=== PATIENT | male | born 1980 | race Caucasian/White ===

== ENCOUNTER 2016-08-19 15:00 | Outpatient (RCR) | payer MEDICAID | END 2016-08-25 | LOC: M OUTALCOH 15:00 | PROVIDERS: ATTEND Psychiatry & Neurology Psychiatry | DX: F15.20 Other stimulant dependence, uncomplicated (principal); F10.20 Alcohol dependence, uncomplicated ==

== ENCOUNTER → 2017-07-09 | Outpatient (REF) | payer OTHER, MEDICAID | LOC: M LAB REF 18:08 | PROVIDERS: ATTEND Family Medicine Addiction Medicine | DX: N52.2 Drug-induced erectile dysfunction (principal) ==

== ENCOUNTER → 2017-07-15 | Outpatient (REF) | payer OTHER, MEDICAID ==
[2017-07-15 17:37] LABS: BASO # 0.1 10^3/uL (0.0-0.2); BASO % 1.2 % (0.0-1.0); EOS # 0.3 10^3/uL (0.0-0.50); EOS % 3.6 % (0.0-3.0); IMMATURE GRANULOCYTE # 0.1 10^3/uL (0-0); IMMATURE GRANULOCYTE % 0.8 % (0-0); LYMPH # 3.3 10^3/uL (1.5-4.5); LYMPH % 43.3 % (24.0-44.0); MEAN CORPUSCULAR HEMOGLOBIN 29.5 pg (27.0-33.0); MEAN CORPUSCULAR HGB CONC 33.9 g/dl (32.0-36.5); MONO # 0.6 10^3/uL (0.0-0.8); MONO % 8.2 % (0.0-5.0); NEUTROPHILS # 3.3 10^3/uL (1.8-7.7); NEUTROPHILS % 42.9 % (36.0-66.0); PLATELET COUNT, AUTOMATED 238 10^3/uL (150-450); RED CELL DISTRIBUTION WIDTH 11.7 % (11.5-14.5); WHITE BLOOD COUNT 7.7 10^3/uL (4.0-10.0)
[2017-07-15 18:06] LABS: ALBUMIN 4.1 GM/DL (3.2-5.2); ALBUMIN/GLOBULIN RATIO 1.32 (1.00-1.93); ALKALINE PHOSPHATASE 105 U/L (45-117); ALT/SGPT 49 U/L (12-78); ANION GAP 4 MEQ/L (8-16); AST/SGOT 26 U/L (7-37); BILIRUBIN,TOTAL 0.4 MG/DL (0.2-1.0); BLOOD UREA NITROGEN 9 MG/DL (7-18); CALCIUM LEVEL 8.7 MG/DL (8.5-10.1); CARBON DIOXIDE LEVEL 30 MEQ/L (21-32); CHLORIDE LEVEL 106 MEQ/L (98-107); CHOLESTEROL LEVEL 186 MG/DL (<200); CREATININE FOR GFR 0.77 MG/DL (0.70-1.30); GLOMERULAR FILTRATION RATE > 60.0 (>60); GLUCOSE, FASTING 81 MG/DL (70-105); POTASSIUM SERUM 4.5 MEQ/L (3.5-5.1); SODIUM LEVEL 140 MEQ/L (136-145); TOTAL PROTEIN 7.2 GM/DL (6.4-8.2); TRIGLYCERIDES LEVEL 150 MG/DL (<150)
== END ==
LOC: M LAB REF 08:00
DX: Z00.01 Encounter for general adult medical examination with abnormal findings (principal); F19.11 Other psychoactive substance abuse, in remission
CPT/HCPCS: 84403

== ENCOUNTER → 2017-08-03 | Outpatient (REF) | payer OTHER, MEDICAID | LOC: M LAB REF 18:07 | DX: F19.11 Other psychoactive substance abuse, in remission (principal) ==

== ENCOUNTER → 2017-08-10 | Outpatient (REF) | payer OTHER, MEDICAID ==
[2017-08-14 08:06] LABS: AMPHETAMINE SCREEN, URINE Negative ng/mL (Cutoff=1000); BARBITURATES SCREEN, URINE Negative ng/mL (Cutoff=200); BENZODIAZEPINES, URINE SCREEN Negative ng/mL (Cutoff=200); CANNABINOID SCREEN, URINE See Final Results ng/mL (Cutoff=20); CANNABINOID, URINE Positive (Cutoff=20); CARBOXY THC (GC/MS) 174 ng/mL (Cutoff=10); COCAINE SCREEN, URINE Negative ng/mL (Cutoff=300); CREATININE, URINE 99.2 mg/dL (20.0-300.0); FENTANYL URINE SCREEN Negative pg/mL (Cutoff=2000); METHADONE, URINE SCREEN Negative ng/mL (Cutoff=300); NALOXONE RESULT Positive (.); OPIATE SCREEN, URINE Negative ng/mL (Cutoff=300); OXYCODONE, SCREEN, URINE Negative ng/mL (Cutoff=100); PCP SCREEN, URINE Negative ng/mL (Cutoff=25); SPECIFIC GRAVITY, URINE 1.013 (.); URINE BUPRENORPHINE Positive (.); URINE BUPRENORPHINE Positive (Cutoff=10); URINE BUPRENORPHINE See Final Results ng/mL (Cutoff=10); URINE BUPRENORPHINE CONFIRM 46 ng/mL (Cutoff=10); URINE NORBUPRENORPHINE Positive (.); URINE NORBUPRENORPHINE CONFIRM 156 ng/mL (Cutoff=10)
== END ==
LOC: M LAB REF 12:53
DX: F19.11 Other psychoactive substance abuse, in remission (principal)

== ENCOUNTER → 2017-08-18 | Outpatient (REF) | payer OTHER, MEDICAID | LOC: M LAB REF 17:15 | DX: F19.11 Other psychoactive substance abuse, in remission (principal) ==

== ENCOUNTER → 2017-08-25 | Outpatient (REF) | payer OTHER, MEDICAID | LOC: M LAB REF 19:23 | DX: F19.11 Other psychoactive substance abuse, in remission (principal) ==

== ENCOUNTER → 2017-09-07 | Outpatient (REF) | payer OTHER, MEDICAID ==
[2017-09-13 14:16] LABS: AMPHETAMINE SCREEN, URINE Negative ng/mL (Cutoff=1000); BARBITURATES SCREEN, URINE Negative ng/mL (Cutoff=200); BENZODIAZEPINES, URINE SCREEN Negative ng/mL (Cutoff=200); CANNABINOID SCREEN, URINE See Final Results ng/mL (Cutoff=20); CANNABINOID, URINE Negative (Cutoff=20); COCAINE SCREEN, URINE Negative ng/mL (Cutoff=300); CREATININE, URINE 11.2 mg/dL (20.0-300.0); FENTANYL URINE SCREEN Negative pg/mL (Cutoff=2000); METHADONE, URINE SCREEN Negative ng/mL (Cutoff=300); NALOXONE RESULT Positive (.); OPIATE SCREEN, URINE Negative ng/mL (Cutoff=300); OXYCODONE, SCREEN, URINE Negative ng/mL (Cutoff=100); PCP SCREEN, URINE Negative ng/mL (Cutoff=25); URINE BUPRENORPHINE Negative ng/mL (Cutoff=10); pH, URINE 6.8 (4.5-8.9)
== END ==
LOC: M LAB REF 13:26
DX: F19.11 Other psychoactive substance abuse, in remission (principal)
CPT/HCPCS: 80362

== ENCOUNTER → 2017-09-20 | Outpatient (CLI) | payer MEDICAID | LOC: M OUTALCOH 13:11 | DX: Z13.9 Encounter for screening, unspecified (principal); F11.20 Opioid dependence, uncomplicated; F12.20 Cannabis dependence, uncomplicated ==

== ENCOUNTER → 2017-09-22 | Outpatient (REF) | payer MEDICAID | LOC: M LAB REF 16:46 | DX: F19.11 Other psychoactive substance abuse, in remission (principal) ==

== ENCOUNTER → 2017-09-29 | Outpatient (REF) | payer MEDICAID | LOC: M LAB REF 16:37 | DX: F19.11 Other psychoactive substance abuse, in remission (principal) | CPT/HCPCS: 80362 ==

== ENCOUNTER 2017-09-30 13:05 | Outpatient (RCR) | payer MEDICAID | END 2017-10-23 | LOC: M OUTALCOH 10-04 14:00 | DX: F15.20 Other stimulant dependence, uncomplicated (principal); F11.20 Opioid dependence, uncomplicated; F12.20 Cannabis dependence, uncomplicated; F17.200 Nicotine dependence, unspecified, uncomplicated ==

== ENCOUNTER → 2017-10-01 | Outpatient (CLI) | payer OTHER | LOC: M EKG 13:31 | DX: R07.89 Other chest pain (principal) | CPT/HCPCS: 93005 ==

== ENCOUNTER → 2017-10-06 | Outpatient (REF) | payer OTHER, MEDICAID ==
[2017-10-13 08:40] LABS: AMPHETAMINE SCREEN, URINE Negative ng/mL (Cutoff=1000); BARBITURATES SCREEN, URINE Negative ng/mL (Cutoff=200); BENZODIAZEPINES, URINE SCREEN Negative ng/mL (Cutoff=200); CANNABINOID SCREEN, URINE See Final Results ng/mL (Cutoff=20); CANNABINOID, URINE Positive (Cutoff=20); CARBOXY THC (GC/MS) 120 ng/mL (Cutoff=10); COCAINE SCREEN, URINE Negative ng/mL (Cutoff=300); CREATININE, URINE 129.4 mg/dL (20.0-300.0); FENTANYL URINE SCREEN Negative pg/mL (Cutoff=2000); METHADONE, URINE SCREEN Negative ng/mL (Cutoff=300); NALOXONE RESULT Positive (.); OPIATE SCREEN, URINE Negative ng/mL (Cutoff=300); OXYCODONE, SCREEN, URINE Negative ng/mL (Cutoff=100); PCP SCREEN, URINE Negative ng/mL (Cutoff=25); SPECIFIC GRAVITY, URINE 1.016 (.); URINE BUPRENORPHINE Positive (.); URINE BUPRENORPHINE Positive (Cutoff=10); URINE BUPRENORPHINE See Final Results ng/mL (Cutoff=10); URINE BUPRENORPHINE CONFIRM 22 ng/mL (Cutoff=10); URINE NORBUPRENORPHINE Positive (.); URINE NORBUPRENORPHINE CONFIRM 134 ng/mL (Cutoff=10); pH, URINE 5.5 (4.5-8.9)
== END ==
LOC: M LAB REF 19:59
DX: F19.11 Other psychoactive substance abuse, in remission (principal)
CPT/HCPCS: 80362

== ENCOUNTER 2017-10-07 20:49 | Emergency (ER) | payer OTHER, MEDICAID | END 2017-10-08 00:02 | disposition left against medical advice (07) | LOC: M ED 10-08 00:02 | DX: Z53.21 Procedure and treatment not carried out due to patient leaving prior to being seen by health care provider (principal) ==

== ENCOUNTER → 2017-10-12 | Outpatient (REF) | payer OTHER, MEDICAID | LOC: M LAB REF 09:00 | DX: F19.11 Other psychoactive substance abuse, in remission (principal) ==

== ENCOUNTER → 2017-10-20 | Outpatient (REF) | payer MEDICAID ==
[2017-10-27 00:06] LABS: AMPHETAMINE SCREEN, URINE Negative ng/mL (Cutoff=1000); BARBITURATES SCREEN, URINE Negative ng/mL (Cutoff=200); BENZODIAZEPINES, URINE SCREEN Negative ng/mL (Cutoff=200); CANNABINOID SCREEN, URINE See Final Results ng/mL (Cutoff=20); CANNABINOID, URINE Positive (Cutoff=20); CARBOXY THC (GC/MS) 72 ng/mL (Cutoff=10); COCAINE SCREEN, URINE Negative ng/mL (Cutoff=300); CREATININE, URINE 66.8 mg/dL (20.0-300.0); FENTANYL URINE SCREEN Negative pg/mL (Cutoff=2000); METHADONE, URINE SCREEN Negative ng/mL (Cutoff=300); NALOXONE RESULT Positive (.); OPIATE SCREEN, URINE Negative ng/mL (Cutoff=300); OXYCODONE, SCREEN, URINE Negative ng/mL (Cutoff=100); PCP SCREEN, URINE Negative ng/mL (Cutoff=25); URINE BUPRENORPHINE Positive (.); URINE BUPRENORPHINE Positive (Cutoff=10); URINE BUPRENORPHINE See Final Results ng/mL (Cutoff=10); URINE BUPRENORPHINE CONFIRM 22 ng/mL (Cutoff=10); URINE NORBUPRENORPHINE Positive (.); URINE NORBUPRENORPHINE CONFIRM 90 ng/mL (Cutoff=10); pH, URINE 5.7 (4.5-8.9)
== END ==
LOC: M LAB REF 17:07
DX: F19.11 Other psychoactive substance abuse, in remission (principal)
CPT/HCPCS: 80362

== ENCOUNTER 2017-10-25 14:33 | Outpatient (RCR) | payer MEDICAID | END 2017-11-22 | LOC: M OUTALCOH 14:33 | DX: F15.20 Other stimulant dependence, uncomplicated (principal); F11.20 Opioid dependence, uncomplicated; F12.20 Cannabis dependence, uncomplicated; F17.200 Nicotine dependence, unspecified, uncomplicated ==

== ENCOUNTER → 2017-11-24 | Outpatient (REF) | payer OTHER, MEDICAID | LOC: M LAB REF 17:42 | DX: F19.11 Other psychoactive substance abuse, in remission (principal) ==

== ENCOUNTER 2017-11-29 15:08 | Outpatient (RCR) | payer MEDICAID | END 2017-12-23 | LOC: M OUTALCOH 15:08 | DX: F15.20 Other stimulant dependence, uncomplicated (principal); F11.20 Opioid dependence, uncomplicated; F12.20 Cannabis dependence, uncomplicated; F17.200 Nicotine dependence, unspecified, uncomplicated ==

== ENCOUNTER → 2017-12-08 | Outpatient (REF) | payer MEDICAID | LOC: M LAB REF 17:00 | DX: F19.11 Other psychoactive substance abuse, in remission (principal) ==

== ENCOUNTER → 2017-12-22 | Outpatient (REF) | payer MEDICAID ==
[2018-01-04 08:06] LABS: AMPHETAMINE SCREEN, URINE Negative ng/mL (Cutoff=1000); BARBITURATES SCREEN, URINE Negative ng/mL (Cutoff=200); BENZODIAZEPINES, URINE SCREEN Negative ng/mL (Cutoff=200); CANNABINOID SCREEN, URINE See Final Results ng/mL (Cutoff=20); CANNABINOID, URINE Positive (Cutoff=20); CARBOXY THC (GC/MS) 14 ng/mL (Cutoff=10); COCAINE SCREEN, URINE Negative ng/mL (Cutoff=300); CREATININE, URINE 27.8 mg/dL (20.0-300.0); FENTANYL URINE SCREEN Negative pg/mL (Cutoff=2000); METHADONE, URINE SCREEN Negative ng/mL (Cutoff=300); NALOXONE RESULT Positive (.); OPIATE SCREEN, URINE Negative ng/mL (Cutoff=300); OXYCODONE, SCREEN, URINE Negative ng/mL (Cutoff=100); PCP SCREEN, URINE Negative ng/mL (Cutoff=25); SPECIFIC GRAVITY, URINE 1.004 (.); URINE BUPRENORPHINE Positive (.); URINE BUPRENORPHINE Positive (Cutoff=10); URINE BUPRENORPHINE See Final Results ng/mL (Cutoff=10); URINE BUPRENORPHINE CONFIRM 10 ng/mL (Cutoff=10); URINE NORBUPRENORPHINE Positive (.); URINE NORBUPRENORPHINE CONFIRM 34 ng/mL (Cutoff=10); pH, URINE 5.7 (4.5-8.9)
== END ==
LOC: M LAB REF 09:08
DX: F19.11 Other psychoactive substance abuse, in remission (principal)

== ENCOUNTER → 2018-04-28 | Outpatient (CLI) | payer OTHER | LOC: M RAD 08:44 | DX: K80.50 Calculus of bile duct without cholangitis or cholecystitis without obstruction (principal) | CPT/HCPCS: 76705 ==

== ENCOUNTER → 2018-09-26 | Outpatient (REF) | payer OTHER ==
[~2018-09-26] MED LIST: OMEP20CA3; SUBO8MIS
[2018-09-26 13:36] LABS: ALBUMIN 3.8 GM/DL (3.2-5.2); ALT/SGPT 29 U/L (12-78); BILIRUBIN,TOTAL 0.3 MG/DL (0.2-1.0); BLOOD UREA NITROGEN 10 MG/DL (7-18); CALCIUM LEVEL 7.9 MG/DL (8.5-10.1); CARBON DIOXIDE LEVEL 25 MEQ/L (21-32); CHLORIDE LEVEL 108 MEQ/L (98-107); CHOLESTEROL LEVEL 204 MG/DL (<200); CHOLESTEROL RISK RATIO 7.285 (<5); CREATININE FOR GFR 0.86 MG/DL (0.70-1.30); GLOMERULAR FILTRATION RATE > 60.0 (>60); GLUCOSE, FASTING 109 MG/DL (70-100); HDL CHOLESTEROL 28 MG/DL (>40); NON-HDL-C 176 MG/DL; POTASSIUM SERUM 4.1 MEQ/L (3.5-5.1); SODIUM LEVEL 141 MEQ/L (136-145); TOTAL PROTEIN 6.9 GM/DL (6.4-8.2); TRIGLYCERIDES LEVEL 481 MG/DL (<150)
== END ==
LOC: M LAB REF 12:04
PROVIDERS: ATTEND Family Medicine Addiction Medicine
DX: G56.03 Carpal tunnel syndrome, bilateral upper limbs (principal)

== ENCOUNTER → 2020-05-21 | Outpatient (CLI) | payer OTHER ==
[~2020-05-21] MED LIST changes: +OMEP1CAP73; -OMEP20CA3
[2020-05-21 13:59] LABS: HEMATOCRIT 45.7 % (42.0-52.0); HEMOGLOBIN 14.9 g/dl (13.5-17.5); MEAN CORPUSCULAR HEMOGLOBIN 28.5 pg (27.0-33.0); MEAN CORPUSCULAR HGB CONC 32.6 g/dl (32.0-36.5); MEAN CORPUSCULAR VOLUME 87.5 fl (80.0-96.0); PLATELET COUNT, AUTOMATED 280 10^3/uL (150-450); RED BLOOD COUNT 5.22 10^6/uL (4.30-6.10); WHITE BLOOD COUNT 10.9 10^3/uL (4.0-10.0)
[2020-05-21 15:24] LABS: HEPATITIS B SURFACE ANTIGEN NEGATIVE (NEGATIVE); HEPATITIS C VIRUS ABY INDEX 0.1 INDEX (<0.8); HIV 1&2 SCREEN CENTAUR NEGATIVE (NEGATIVE)
== END ==
LOC: M LAB 13:25
PROVIDERS: ATTEND Family Medicine
DX: F11.10 Opioid abuse, uncomplicated (principal)

== ENCOUNTER → 2020-11-12 | Outpatient (REF) | payer OTHER ==
[2020-11-12 19:38] LABS: ALBUMIN 4.3 GM/DL (3.2-5.2); ALT/SGPT 63 U/L (12-78); BILIRUBIN,TOTAL 0.6 MG/DL (0.2-1.0); BLOOD UREA NITROGEN 10 MG/DL (7-18); CALCIUM LEVEL 9.1 MG/DL (8.5-10.1); CARBON DIOXIDE LEVEL 29 MEQ/L (21-32); CHLORIDE LEVEL 106 MEQ/L (98-107); CREATININE FOR GFR 0.87 MG/DL (0.70-1.30); FREE T4 0.96 NG/DL (0.76-1.46); GLOMERULAR FILTRATION RATE > 60.0 (>60); GLUCOSE, FASTING 93 MG/DL (70-100); POTASSIUM SERUM 4.8 MEQ/L (3.5-5.1); SODIUM LEVEL 139 MEQ/L (136-145); TOTAL PROTEIN 7.2 GM/DL (6.4-8.2)
[2020-11-12 19:46] LABS: HEPATITIS B SURFACE ANTIGEN NEGATIVE (NEGATIVE)
[2020-11-12 20:23] LABS: TOTAL 25(OH) VITAMIN D 23.4 NG/ML (30.0-100.0)
== END ==
LOC: M LAB REF 11:35
PROVIDERS: ATTEND Physician Assistant
DX: Z11.3 Encounter for screening for infections with a predominantly sexual mode of transmission (principal); R51.9 Headache, unspecified; Z11.4 Encounter for screening for human immunodeficiency virus [HIV]; E55.9 Vitamin D deficiency, unspecified

== ENCOUNTER → 2020-12-16 | Outpatient (CLI) | payer OTHER ==
--- NOTE | 2020-12-16 15:00 | REP ---
INDICATION: PAIN IN RIGHT SHOULDER COMPARISON: None. TECHNIQUE: Internal rotation, external rotation, and Y view. FINDINGS: Very subtle spurring along the inferior margin of the distal clavicle at the acromioclavicular joint. Subacromial space is normal. No periarticular calcifications are identified. The glenohumeral joint is normal. No evidence for acute fracture or dislocation. IMPRESSION: Minimal degenerative changes along the inferior margin of the distal clavicle. <Electronically signed by Alex Mcneil > 12/16/20 [id number]
--- NOTE | 2020-12-16 15:02 | REP ---
INDICATION: PAIN IN RIGHT SHOULDER COMPARISON: None. TECHNIQUE: AP, sunrise and lateral views of the right knee FINDINGS: Osseous structures, joint spaces, and surrounding soft tissues are essentially normal and age-appropriate. No evidence for fracture or dislocation. No obvious effusion. No significant overt arthritic changes identified. IMPRESSION: Relatively normal age-appropriate right knee radiographs. <Electronically signed by Alex Mcneil > 12/16/20 [id number]
== END ==
LOC: M RAD 14:27
PROVIDERS: ATTEND Physician Assistant
DX: M25.511 Pain in right shoulder (principal); M25.561 Pain in right knee; M19.011 Primary osteoarthritis, right shoulder

== ENCOUNTER → 2021-04-18 | Outpatient (REF) | payer OTHER ==
[2021-04-18 10:47] LABS: SEMEN APPEARANCE OPAQUE (OPAQUE); SEMEN VISCOSITY VISCOUS (LIQUID); SEMEN VOLUME 1.5 ml (2.0-5.0)
[2021-04-18 10:48] LABS: WBC CONCENTRATION >1 M/ml (<=1 M/ml)
== END ==
LOC: M SMT 10:23
PROVIDERS: ATTEND Nurse Practitioner Women's Health
DX: N46.9 Male infertility, unspecified (principal)

== ENCOUNTER → 2021-05-08 | Outpatient (CLI) | payer OTHER | LOC: M LABSMTC 10:51 | PROVIDERS: ATTEND Pediatrics | DX: Z20.822 Contact with and (suspected) exposure to COVID-19 (principal) ==

== ENCOUNTER → 2021-06-12 | Outpatient (CLI) | payer OTHER ==
--- NOTE | 2021-06-12 15:58 | REP ---
INDICATION: UNSPECIFIED ABDOMINAL PAIN COMPARISON: None TECHNIQUE: Real time hector scale ultrasound examination using curved array transducer. FINDINGS: Bilateral kidneys are normal in contour, size, echogenicity, and reniform shape. No hydronephrosis, nephrolithiasis, cystic or renal mass lesion. No perinephric fluid collection. Bladder is normal. Left ureteral jet identified likely excluding ureteral obstruction. Right kidney measures 12.4 x 5.7 x 5.8 cm. Left kidney measures 13.1 x 5.0 x 5.5 cm. IMPRESSION: 1. Normal renal ultrasound. <Electronically signed by Alex Mcneil > 06/12/21 [id number]
== END ==
LOC: M RAD 14:52
PROVIDERS: ATTEND Physician Assistant
DX: R10.9 Unspecified abdominal pain (principal)

== ENCOUNTER 2021-06-14 12:36 | Emergency (ER) | payer OTHER ==
[~2021-06-14] VITALS: Ht 175.3 cm; Wt 93.4 kg
--- OUTSIDE RECORDS SUMMARY | 2021-06-14 12:43 | CCD ---
Author Author [facility] Address Unknown Phone Unavailable Care Team Providers Care Seismograph Observer Name Role Phone Feola, T Cherry PA Unavailable Unavailable Feola, T Cherry PA Unavailable Unavailable Feola, T Cherry PA Unavailable Unavailable Feola, T Cherry PA Unavailable Unavailable Feola, T Cherry PA Unavailable Unavailable Feola, T Cherry PA Unavailable Unavailable Feola, T Cherry PA Unavailable Unavailable Feola, T Cherry PA Unavailable Unavailable Feola, T Cherry PA Unavailable Unavailable Feola, T Cherry PA Unavailable Unavailable Feola, T Cherry PA Unavailable Unavailable Feola, T Cherry PA Unavailable Unavailable Feola, T Cherry PA Unavailable Unavailable Feola, T Cherry PA Unavailable Unavailable Feola, T Cherry PA Unavailable Unavailable Feola, T Cherry PA Unavailable Unavailable Feola, T Cherry PA Unavailable Unavailable Feola, T Cherry PA Unavailable Unavailable Feola, T Cherry PA Unavailable Unavailable Feola, T Cherry PA Unavailable Unavailable Feola, T Cherry PA Unavailable Unavailable Feola, T Cherry PA Unavailable Unavailable Feola, T Cherry PA Unavailable Unavailable Feola, T Cherry PA Unavailable Unavailable Feola, T Cherry PA Unavailable Unavailable Feola, T Cherry PA Unavailable Unavailable Feola, T Cherry PA Unavailable Unavailable Feola, T Cherry PA Unavailable Unavailable Feola, T Cherry PA Unavailable Unavailable Feola, T Cherry PA Unavailable Unavailable Feola, T Cherry PA Unavailable Unavailable Feola, T Cherry PA Unavailable Unavailable Feola, T Cherry PA Unavailable Unavailable Feola, T Cherry PA Unavailable Unavailable Feola, T Cherry PA Unavailable Unavailable Feola, T Cherry PA Unavailable Unavailable Feola, T Cherry PA Unavailable Unavailable Feola, T Cherry PA Unavailable Unavailable Feola, T Cherry PA Unavailable Unavailable Feola, T Cherry PA Unavailable Unavailable Feola, T Cheryr PA Unavailable Unavailable Fuad Richmond MD Unavailable Unavailable Fuad Richmond MD Unavailable Unavailable Fuad Richmond MD Unavailable Unavailable Fuad Richmond MD Unavailable Unavailable Fuad Richmond MD Unavailable Unavailable Fuad Richmond MD Unavailable Unavailable Fuad Richmond MD Unavailable Unavailable Fuad Richmond MD Unavailable Unavailable Fuad Richmond MD Unavailable Unavailable Fuad Richmond MD Unavailable Unavailable Fuad Richmond MD Unavailable Unavailable Fuad Richmond MD Unavailable Unavailable Fuad Richmond MD Unavailable Unavailable Fuad Richmond MD Unavailable Unavailable Fuad Richmond MD Unavailable Unavailable Fuad Richmond MD Unavailable Unavailable Fuad Richmond MD Unavailable Unavailable Fuad Richmond MD Unavailable Unavailable Fuad Richmond MD Unavailable Unavailable Fuad Richmond MD Unavailable Unavailable Fuad Richmond MD Unavailable Unavailable Fuad Richmond MD Unavailable Unavailable Fuad Richmond MD Unavailable Unavailable Fuad Richmond MD Unavailable Unavailable Fuad Richmond MD Unavailable Unavailable Fuad Richmond MD Unavailable Unavailable Fuad Richmond MD Unavailable Unavailable Fuad Richmond MD Unavailable Unavailable Fuad Richmond MD Unavailable Unavailable Fuad Richmond MD Unavailable Unavailable Fuad Richmond MD Unavailable Unavailable Fuad Richmond MD Unavailable Unavailable Fuad Richmond MD Unavailable Unavailable Fuad Richmond MD Unavailable Unavailable Fuad Richmond MD Unavailable Unavailable Fuad Richmond MD Unavailable Unavailable Fuad Richmond MD Unavailable Unavailable Fuad Richmond MD Unavailable Unavailable Fuad Richmond MD Unavailable Unavailable Fuad Richmond MD Unavailable Unavailable Fuad Richmond MD Unavailable Unavailable Fuad Richmond MD Unavailable Unavailable Fuad Richmond MD Unavailable Unavailable Fuad Richmond MD Unavailable Unavailable Fuad Richmond MD Unavailable Unavailable Fuad Richmond MD Unavailable Unavailable Fuad Richmond MD Unavailable Unavailable Fuad Richmond MD Unavailable Unavailable Fuad Richmond MD Unavailable Unavailable Fuad Richmond MD Unavailable Unavailable Fuad Richmond MD Unavailable Unavailable Fuad Richmond MD Unavailable Unavailable Fuad Richmond MD Unavailable Unavailable Fuad Richmond MD Unavailable Unavailable Fuad Richmond MD Unavailable Unavailable Fuad Richmond MD Unavailable Unavailable Fuad Richmond MD Unavailable Unavailable Fuad Richmond MD Unavailable Unavailable Fuad Richmond MD Unavailable Unavailable Fuad Richmond MD Unavailable Unavailable Fuad Richmond MD Unavailable Unavailable Fuad Richmond MD Unavailable Unavailable Fuad Richmond MD Unavailable Unavailable Fuad Richmond MD Unavailable Unavailable Fuad Richmond MD Unavailable Unavailable Fuad Richmond MD Unavailable Unavailable Fuad Richmond MD Unavailable Unavailable Fuad Richmond MD Unavailable Unavailable Fuad Richmond MD Unavailable Unavailable Fuad Richmond MD Unavailable Unavailable Fuad Richmond MD Unavailable Unavailable Fuad Richmond MD Unavailable Unavailable Fuad Richmond MD Unavailable Unavailable Fuad Richmond MD Unavailable Unavailable Fuad Richmond MD Unavailable Unavailable Fuad Richmond MD Unavailable Unavailable Fuad Richmond MD Unavailable Unavailable Fuda Richmond MD Unavailable Unavailable Fuad Richmond MD Unavailable Unavailable Fuad Richmond MD Unavailable Unavailable Fuad Richmond MD Unavailable Unavailable Fuad Richmond MD Unavailable Unavailable Fuad Richmond MD Unavailable Unavailable Fuad Richmond MD Unavailable Unavailable Fuad Richmond MD Unavailable Unavailable Fuad Richmond MD Unavailable Unavailable Fuad Richmond MD Unavailable Unavailable Fuad Richmond MD Unavailable Unavailable Fuad Richmond MD Unavailable Unavailable Fuad Richmond MD Unavailable Unavailable Fuad Richmond MD Unavailable Unavailable Fuad Ricmhond MD Unavailable Unavailable Fuad Richmond MD Unavailable Unavailable MCCULLOUGH, G EDWARD RPA Unavailable Unavailable MCCULLOUGH, G EDWARD RPA Unavailable Unavailable MCCULLOUGH, G EDWARD RPA Unavailable Unavailable MCCULLOUGH, G EDWARD RPA Unavailable Unavailable MCCULLOUGH, G EDWARD RPA Unavailable Unavailable MCCULLOUGH, G EDWARD RPA Unavailable Unavailable MCCULLOUGH, G EDWARD RPA Unavailable Unavailable MCCULLOUGH, G EDWARD RPA Unavailable Unavailable MCCULLOUGH, G EDWARD RPA Unavailable Unavailable MCCULLOUGH, G EDWARD RPA Unavailable Unavailable MCCULLOUGH, G EDWARD RPA Unavailable Unavailable MCCULLOUGH, G EDWARD RPA Unavailable Unavailable MCCULLOUGH, G EDWARD RPA Unavailable Unavailable MCCULLOUGH, G EDWARD RPA Unavailable Unavailable MCCULLOUGH, G EDWARD RPA Unavailable Unavailable MCCULLOUGH, G EDWARD RPA Unavailable Unavailable MCCULLOUGH, G EDWARD RPA Unavailable Unavailable MCCULLOUGH, G EDWARD RPA Unavailable Unavailable MCCULLOUGH, G EDWARD RPA Unavailable Unavailable MCCULLOUGH, G EDWARD RPA Unavailable Unavailable MCCULLOUGH, G EDWARD RPA Unavailable Unavailable MCCULLOUGH, G EDWARD RPA Unavailable Unavailable MCCULLOUGH, G EDWARD RPA Unavailable Unavailable MCCULLOUGH, G EDWARD RPA Unavailable Unavailable MCCULLOUGH, G EDWARD RPA Unavailable Unavailable MCCULLOUGH, G EDWARD RPA Unavailable Unavailable MCCULLOUGH, G EDWARD RPA Unavailable Unavailable MCCULLOUGH, G EDWARD RPA Unavailable Unavailable MCCULLOUGH, G EDWARD RPA Unavailable Unavailable MCCULLOUGH, G EDWARD RPA Unavailable Unavailable MCCULLOUGH, G EDWARD RPA Unavailable Unavailable MCCULLOUGH, G EDWARD RPA Unavailable Unavailable MCCULLOUGH, G EDWARD RPA Unavailable Unavailable MCCULLOUGH, G EDWARD RPA Unavailable Unavailable MCCULLOUGH, G EDWARD RPA Unavailable Unavailable MCCULLOUGH, G EDWARD RPA Unavailable Unavailable MCCULLOUGH, G EDWARD RPA Unavailable Unavailable Nader Duran MD Unavailable Unavailable Nader Duran MD Unavailable Unavailable Nader Duran MD Unavailable Unavailable Nader Duran MD Unavailable Unavailable Nader Duran MD Unavailable Unavailable Nader Duran MD Unavailable Unavailable Nader Duran MD Unavailable Unavailable Nader Duran MD Unavailable Unavailable Nader Duran MD Unavailable Unavailable Nader Duran MD Unavailable Unavailable Nader Duran MD Unavailable Unavailable Nader Duran MD Unavailable Unavailable Nader Duran MD Unavailable Unavailable Nader Duran MD Unavailable Unavailable Nader Duran MD Unavailable Unavailable Nader Duran MD Unavailable Unavailable Nader Duran MD Unavailable Unavailable Nader Duran MD Unavailable Unavailable Nader Duran MD Unavailable Unavailable Nader Duran MD Unavailable Unavailable Nader Duran MD Unavailable Unavailable Nader Duran MD Unavailable Unavailable Nader Duran MD Unavailable Unavailable Nader Duran MD Unavailable Unavailable Nader Duran MD Unavailable Unavailable Scordo, M Kassy PA Unavailable Unavailable Scordo, M Kassy PA Unavailable Unavailable Scordo, M Kassy PA Unavailable Unavailable Scordo, M Kassy PA Unavailable Unavailable Scordo, M Kassy PA Unavailable Unavailable Scordo, M Kassy PA Unavailable Unavailable Scordo, M Kassy PA Unavailable Unavailable Scordo, M Kassy PA Unavailable Unavailable Scordo, M Kassy PA Unavailable Unavailable Scordo, M Kassy PA Unavailable Unavailable Scordo, M Kassy PA Unavailable Unavailable Scordo, M Kassy PA Unavailable Unavailable Scordo, M Kassy PA Unavailable Unavailable Scordo, M Kassy PA Unavailable Unavailable Scordo, M Kassy PA Unavailable Unavailable Scordo, M Kassy PA Unavailable Unavailable Scordo, M Kassy PA Unavailable Unavailable Scordo, M Kassy PA Unavailable Unavailable Scordo, M Kassy PA Unavailable Unavailable Scordo, M Kassy PA Unavailable Unavailable Scordo, M Kassy PA Unavailable Unavailable Scordo, M Kassy PA Unavailable Unavailable Scordo, M Kassy PA Unavailable Unavailable Scordo, M Kassy PA Unavailable Unavailable Scordo, M Kassy PA Unavailable Unavailable Scordo, M Kassy PA Unavailable Unavailable Scordo, M Kassy PA Unavailable Unavailable Scordo, M Kassy PA Unavailable Unavailable Scordo, M Kassy PA Unavailable Unavailable Scordo, M Kassy PA Unavailable Unavailable Scordo, M Kassy PA Unavailable Unavailable Scordo, M Kassy PA Unavailable Unavailable Scordo, M Kassy PA Unavailable Unavailable Scordo, M Kassy PA Unavailable Unavailable Scordo, M Kassy PA Unavailable Unavailable Scordo, M Kassy PA Unavailable Unavailable Scordo, M Kassy PA Unavailable Unavailable Scordo, M Kassy PA Unavailable Unavailable Scordo, M Kassy PA Unavailable Unavailable Scordo, M Kassy PA Unavailable Unavailable Scordo, M Kassy PA Unavailable Unavailable Scordo, M Kassy PA Unavailable Unavailable Scordo, M Kassy PA Unavailable Unavailable Scordo, M Kassy PA Unavailable Unavailable Scordo, M Kassy PA Unavailable Unavailable Scordo, M Kassy PA Unavailable Unavailable Scordo, M Kassy PA Unavailable Unavailable Re-disclosure Warning The records that you are about to access may contain information from federally-assisted alcohol or drug abuse programs. If such information is present, then the following federally mandated warning applies: This information has been disclosed to you from records protected by federal confidentiality rules (42 CFR part 2). The federal rules prohibit you from making any further disclosure of this information unless further disclosure is expressly permitted by the written consent of the person to whom it pertains or as otherwise permitted by 42 CFR part 2. A general authorization for the release of medical or other information is NOT sufficient for this purpose. The Federal rules restrict any use of the information to criminally investigate or prosecute any alcohol or drug abuse patient.The records that you are about to access may contain highly sensitive health information, the redisclosure of which is protected by Article 27-F of the [facility] Public Health law. If you continue you may have access to information: Regarding HIV / AIDS; Provided by facilities licensed or operated by the [facility] Office of Mental Health; or Provided by the [facility] Office for People With Developmental Disabilities. If such information is present, then the following [facility] mandated warning applies: This information has been disclosed to you from confidential records which are protected by state law. State law prohibits you from making any further disclosure of this information without the specific written consent of the person to whom it pertains, or as otherwise permitted by law. Any unauthorized further disclosure in violation of state law may result in a fine or fpc sentence or both. A general authorization for the release of medical or other information is NOT sufficient authorization for further disc losure. Family History Family Member Name Family Member Gender Family Member Status Date o f Status Description Data Source(s) Unknown Male Problem [facility] ([facility]) Encounters Encounter Providers Location Date Indications Data Source(s ) Outpatient Attender: Luly Duran MD 1 08/13/2020 06:50:19 PM EST - 06/13/2021 08:02:36 PM EST [facility] ([facility]) Unknown [address] [facility] [address] 04/18/2021 12:00:00 AM EDT eCW1 ([facility]) Outpatient [address] [facility] [place] [address] 04/15/2021 12:00:00 AM EDT eCW1 ([facility]) Outpatient Attender: Cherry FLORES 03/04/2021 12:00:29 PM EDT [facility] ([facility]) SHELL GanC: [address], [place] [address], Ph. Attender: Kassy FLORES [facility] Medical 02/28/2021 12:00:00 AM EDT AM[facility] ([facility]) Outpatient Attender: LAYO MCCULLOUGH [facility] 01/25 12:46:53 PM EDT - 01/25/2021 01:14:57 PM EDT [facility] ([facility] ) SHELL Gan[facility]: [address], [place] [address], Ph. Attender: Kassy FLORES [facility] Medical 11/12/2020 12:00:00 AM EDT AMY ([facility]) Kassy Moss PA-C: [address], [place] [address], Ph. Attender: Kassy FLORES [facility] Medical 11/12/2020 12:00:00 AM EDT AMY ([facility]) Outpatient Attender: Thony Richmond MD FP 05/20/2020 11:37:00 AM EDT [facility] Outpatient Attender: Thony Richmond MD FP 05/13/2020 10:14:01 AM EDT [facility] Outpatient Attender: Thony Richmond MD FP 05/06/2020 03:43:01 PM EDT [facility] Outpatient Attender: Thony Richmond MD FP 05/06/2020 02:45:00 PM EDT [facility] Outpatient Attender: Thony Richmond MD FP 05/06/2020 11:51:02 AM EDT [facility] Outpatient Attender: Thony Richmond MD FP 05/03/2020 11:44:03 AM EDT [facility] Outpatient Attender: Thony Richmond MD FP 05/02/2020 11:02:01 AM EDT [facility] Outpatient Attender: Thony Richmond MD FP 04/30/2020 11:04:01 AM EDT [facility] Outpatient Attender: Thony Richmond MD FP 04/30/2020 08:54:00 AM EDT [facility] Outpatient Attender: Thony Richmond MD FP 04/25/2020 02:23:00 PM EDT [facility] Outpatient Attender: Thony Richmond MD FP 04/25/2020 02:14:00 PM EDT [facility] Outpatient Attender: Thony Richmond MD FP 04/25/2020 10:48:01 AM EDT [facility] Outpatient Attender: Thony Richmond MD FP 04/23/2020 01:22:02 PM EDT [facility] Outpatient Attender: Thony Richmond MD FP 04/23/2020 10:18:01 AM EDT [facility] Outpatient Attender: Thnoy Richmond MD FP 04/22/2020 02:13:02 PM EDT [facility] Outpatient Attender: Thony Richmond MD FP 04/19/2020 08:32:03 AM EDT [facility] Outpatient Attender: Thony Richmond MD FP 04/17/2020 03:32:03 PM EDT [facility] Outpatient Attender: Thony Richmond MD FP 04/17/2020 12:33:00 PM EDT [facility] Outpatient Attender: Thony Richmond MD FP 04/15/2020 10:25:00 AM EDT [facility] Immunizations Vaccine Date Status Description Data Source(s) COVID-19 VACCINE Moderna 12/09/2020 12:00:00 AM EDT completed [facility] Vaccine Series Complete: YESThis Data wa s Submitted to [facility] Via [facility]. COVID-19 VACC,MRNA(MODERNA)/PF 11/08/2020 12:00:00 AM EDT completed [facility] COVID-19 VACCINE Moderna 11/08/2020 12:00:00 AM EDT completed [facility] Vaccine Series Complete: NOThis Data was Submitted to [facility] Via [facility]. INFLUENZA VIRUS VACCINE QUADRIVALENT 2019- (6 MOS AN D UP) 05/31/2020 12:00:00 AM EST completed [facility] Medications Medication Brand Name Start Date Product Form Dose Route Admi nistrative Instructions Pharmacy Instructions Status Indications Reaction Description Data Source(s) 60 mcg (15 mcg x 4)/0.5 mL 04/18/2021 12:00:00 AM EDT [facility] 0 INJECT DIRECTED INJECT DIRECTED SOLD: 04/18/2021 [facility] 40 mg 01/11/2021 12:00:00 AM EDT capsule,delayed release (DR/EC) 30 TAKE ONE CAPSULE BY MOUTH EVERY DAY TAKE ONE CAPSULE BY MOUTH EVERY DAY SOLD: 05/15/2021 [facility] 40 mg 01/11/2021 12:00:00 AM EDT capsule,delayed release (DR/EC) 30 TAKE ONE CAPSULE BY MOUTH EVERY DAY TAKE ONE CAPSULE BY MOUTH EVERY DAY SOLD: 04/16/2021 [facility] 40 mg 01/11/2021 12:00:00 AM EDT capsule,delayed release (DR/EC) 30 TAKE ONE CAPSULE BY MOUTH EVERY DAY TAKE ONE CAPSULE BY MOUTH EVERY DAY SOLD: 02/12/2021 [facility] 40 mg 01/11/2021 12:00:00 AM EDT capsule,delayed release (DR/EC) 30 TAKE ONE CAPSULE BY MOUTH EVERY DAY TAKE ONE CAPSULE BY MOUTH EVERY DAY SOLD: 03/16/2021 [facility] 40 mg 01/11/2021 12:00:00 AM EDT capsule,delayed release (DR/EC) 30 TAKE ONE CAPSULE BY MOUTH EVERY DAY TAKE ONE CAPSULE BY MOUTH EVERY DAY SOLD: 01/14/2021 [facility] 40 mg 11/12/2020 12:00:00 AM EDT capsule,delayed release (DR/EC) 30 TAKE ONE CAPSULE BY MOUTH EVERY DAY TAKE ONE CAPSULE BY MOUTH EVERY DAY SOLD: 11/13/2020 [facility] 40 mg 11/12/2020 12:00:00 AM EDT capsule,delayed release (DR/EC) 30 TAKE ONE CAPSULE BY MOUTH EVERY DAY TAKE ONE CAPSULE BY MOUTH EVERY DAY SOLD: 12/12/2020 [facility] 40 mg 08/10/2020 12:00:00 AM EST capsule,delayed release (DR/EC) 30 TAKE ONE CAPSULE BY MOUTH EVERY DAY TAKE ONE CAPSULE BY MOUTH EVERY DAY SOLD: 08/15/2020 [facility] 12-3 mg 05/14/2020 12:00:00 AM EDT film [address] PL[address] ONE FILM UNDER THE TONGUE EVERY DAY MAXIMUM DAILY DOSE = [address] ONE FILM UNDER THE TONGUE EVERY DA Y MAXIMUM DAILY DOSE = 1 FILM SOLD: 05/16/2020 [facility] 12-3 mg 05/06/2020 12:00:00 AM EDT film 7 PLACE ONE FILM UNDER THE TONGUE EVERY MORNING MAXIMUM DAILY DOSE = [address] ONE FILM UNDER THE TONGUE EVERY MORNING MAXIMUM DAILY DOSE = 1 FILM SOLD: 05/07/2020 [facility] 40 mg 04/24/2020 12:00:00 AM EDT capsule,delayed release (DR/EC) 30 TAKE ONE CAPSULE BY MOUTH EVERY DAY TAKE ONE CAPSULE BY MOUTH EVERY DAY SOLD: 07/08/2020 [facility] 40 mg 04/24/2020 12:00:00 AM EDT capsule,delayed release (DR/EC) 30 TAKE ONE CAPSULE BY MOUTH EVERY DAY TAKE ONE CAPSULE BY MOUTH EVERY DAY SOLD: 05/31/2020 [facility] 40 mg 04/24/2020 12:00:00 AM EDT capsule,delayed release (DR/EC) 30 TAKE ONE CAPSULE BY MOUTH EVERY DAY TAKE ONE CAPSULE BY MOUTH EVERY DAY SOLD: 04/27/2020 [facility] 12-3 mg 04/23/2020 12:00:00 AM EDT film 7 PLACE ONE FILM UNDER THE TONGUE EVERY MORNING MAXIMUM DAILY DOSE = [address] ONE FILM UNDER THE TONGUE EVERY MORNING MAXIMUM DAILY DOSE = 1 FILM SOLD: 04/23/2020 [facility] 12-3 mg 04/17/2020 12:00:00 AM EDT film 7 PLACE ONE FILM UNDER THE TONGUE EVERY MORNING MAXIMUM DAILY DOSE = [address] ONE FILM UNDER THE TONGUE EVERY MORNING MAXIMUM DAILY DOSE = 1 FILM SOLD: 04/17/2020 [facility] Sertraline 100 MG Oral Tablet sertraline 100 mg tablet sertr diana 100 mg tablet completed sertraline 100 MG Oral Tablet AMY ([facility]) Fluzone Quad 60 mcg (15 mcg x 4)/0.5 mL intramuscular susp. [id number] completed Fluzone Quad 2 -2020 60 mcg (15 mcg x 4)/0.5 mL intramuscular susp. AMY ([facility]) Fluzone Quad 60 mcg (15 mcg x 4)/0.5 mL intramuscular susp. [id number] completed Fluzone Quad 2 -2020 60 mcg (15 mcg x 4)/0.5 mL intramuscular susp. AMY ([facility]) Insurance Providers Payer name Policy type / Coverage type Policy ID Covered republican ID Covered republican's relationship to gupta Policy Gupta Plan Information [facility] [employer] [employer] PLUS [id number] SP [id number] Medicaid S [id number] S [id number] [facility] P [id number] S [id number] Managed Formerly [facility] P [id number] S [id number] [facility] [id number] SP [id number] Medicaid S [id number] [facility] P [id number] S [id number] Medicaid S [id number] S [id number] [employer] P [id number] S [id number] [employer] P [id number] S [id number] [employer] P [id number] S [id number] [facility] S [id number] S [id number] [facility] P [id number] S [id number] Medicaid S [id number] S [id number] [facility] [employer] [id number] Self [id number] [facility] [employer]. [id number] Self [id number] [employer] emp [id number] Employee [id number] [facility] [id number] SP [id number] Self Pay P [id number] S [id number] Self Pay P UNAVAILABLE S UNAVAILA BLE [facility] O [id number] S [id number] Medicaid S [id number] S [id number] [facility] [id number] SP [id number] MEDICAID [id number] SP [id number] [facility] [id number] Self 1 [id number] [facility] P [id number] S [id number] MEDICAID M [id number] S [id number] SELF PAY ONLY [id number] SP [id number] UNAVAILABLE UNAVAILA BLE SELF PAY UNAVAILABLE UNAVAILA BLE [employer] [id number] SP [id number] [facility] [employer] [id number] Problems, Conditions, and Diagnoses Code Display Name Description Problem Type Effective Dates Data Source(s) N46.9 Male infertility Male infertility, unspecified Problem 04/15/2021 12:00:00 AM EDT eCW1 ([facility]) N46.9 Male infertility Infertility male Problem 03/05/2021 12 :00:00 AM EDT eCW1 ([facility]) [id number] Secondary erectile dysfunction Secondary Erectile Dysf unction Problem 04/25/2020 12:00:00 AM EDT [facility] ([facility]) [id number] 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 Negative Dysphotopsia Problem 04/25/2020 12:00:00 AM EDT [facility] ([facility]) [id number] Obstructive sleep apnea syndrome Obstructive Sle ep Apnea Syndrome Problem 04/25/2020 12:00:00 AM EDT [place] ([facility]) [id number] Secondary erectile dysfunction Secondary Erectile Dysf unction Problem 04/25/2020 12:00:00 AM EDT AM[facility] ([facility]) [id number] 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 Negative Dysphotopsia Problem 04/25/2020 12:00:00 AM EDT [facility] ([facility]) [id number] Obstructive sleep apnea syndrome Obstructive Sle ep Apnea Syndrome Problem 04/25/2020 12:00:00 AM EDT [place] ([facility]) [id number] Disorder of upper respiratory system Dis order of Upper Respiratory System Problem 06/08/2019 12:00:00 AM EST - 11/12/2020 12:00:00 AM EDT [place] ([facility]) [id number] Disorder of upper respiratory system Dis order of Upper Respiratory System Problem 06/08/2019 12:00:00 AM EST - 11/12/2020 12:00:00 AM EDT [place] ([facility]) [id number] Finding of general energy Finding of General Energy Pr oblem 09/07/2018 12:00:00 AM EST - 11/12/2020 12:00:00 AM EDT AMY ([facility]) [id number] Finding of general energy Finding of General Energy Pr oblem 09/07/2018 12:00:00 AM EST - 11/12/2020 12:00:00 AM EDT [facility] [facility]) [id number] Chest pain Chest Pain Problem 09/22/2017 12:0 0:00 AM EST - 11/12/2020 12:00:00 AM EDT AM[facility] ([facility]) [id number] Chest pain Chest Pain Problem 09/22/2017 12:0 0:00 AM EST - 11/12/2020 12:00:00 AM EDT AM[facility] ([facility]) [id number] Procedure by method Procedure by Method Problem 1 09/02/2016 12:00:00 AM EST - 11/12/2020 12:00:00 AM EDT AMY ([facility]) [id number] Procedure by method Procedure by Method Problem 1 09/02/2016 12:00:00 AM EST - 11/12/2020 12:00:00 AM EDT AM[facility] ([facility]) Surgeries/Procedures No Information Results ID Date Data Source [id number] 11/12/2020 09:55:00 AM EDT [place] ([facility]) Name Value Range Interpretation Code Description Data [place] rce(s) Supporting Document(s) HIV 1&2 screen centaur negative negative HIV 1&2 Scree n Centaur [place] ([facility]) ID Date Data Source [id number] 11/12/2020 09:55:00 AM EDT [place] ([facility]) Name Value Range Interpretation Code Description Data [place] rce(s) Supporting Document(s) syphilis nonreactive nonreactive Syphilis [facility] ([facility]) ID Date Data Source [id number] 11/12/2020 09:55:00 AM EDT [facility]) Name Value Range Interpretation Code Description Data [place] rce(s) Supporting Document(s) total 25(oh) vitamin D 23.4 NG/mL 30.0-100.0 Below low normal T otal 25(Oh) Vitamin D [place] ([facility]) ID Date Data Source [id number] 11/12/2020 09:55:00 AM EDT [facility]) Name Value Range Interpretation Code Description Data [place] rce(s) Supporting Document(s) thyroid stimulating hormone 1.600 uIU/mL 0.358-3.740 Thyroid Stimulating Hormone [place] ([facility]) free T4 0.96 NG/dL 0.76-1.46 Free T4 [facility]) ID Date Data Source [id number] 11/12/2020 09:55:00 AM EDT [facility]) Name Value Range Interpretation Code Description Data [place] rce(s) Supporting Document(s) hepatitis B surface antigen negative negative Hepatiti s B Surface Antigen [facility]) ID Date Data Source [id number] 11/12/2020 09:55:00 AM EDT [facility]) Name Value Range Interpretation Code Description Data [place] rce(s) Supporting Document(s) hepatitis C virus jocelynn index 0.0 index <0.8 Hepatiti s C Virus Jocelynn Index [facility]) ID Date Data Source [id number] 11/12/2020 09:55:00 AM EDT [facility]) Name Value Range Interpretation Code Description Data [place] rce(s) Supporting Document(s) glucose, fasting 93 mg/dL 70-100 Glucose, Fasting AT [facility] ([facility]) creatinine for GFR 0.87 mg/dL 0.70-1.30 Creatinine for GF R [place] ([facility]) blood urea nitrogen 10 mg/dL 7-18 Blood Urea Nitro gen [facility] ([facility]) glomerular filtration rate > 60.0 >60 Glomerula r Filtration Rate [place] ([facility]) chloride level 106 mEq/L 98-107 Chloride Level [facility] ([facility]) sodium level 139 mEq/L 136-145 Sodium Level [facility] ([facility]) potassium serum 4.8 mEq/L 3.5-5.1 Potassium Serum [place] ([facility]) AST/SGOT 31 U/L 7-37 AST/SGOT [facility] ([facility]) carbon dioxide level 29 mEq/L 21-32 Carbon Dioxide Level [facility] ([facility]) calcium level 9.1 mg/dL 8.5-10.1 Calcium Level [place] ( [facility]) anion gap 4 mEq/L 8-16 Below low normal Anion Gap [facility] ( [facility]) ALT/SGPT 63 U/L 12-78 ALT/SGPT [facility] ([facility]) bilirubin,total 0.6 mg/dL 0.2-1.0 Bilirubin,total [place] ([facility]) alkaline phosphatase 94 U/L 45-117 Alkaline Phosph atase [facility] ([facility]) total protein 7.2 gm/dL 6.4-8.2 Total Protein [facility] ( [facility]) albumin/globulin ratio Albumin/globu kamron Ratio [facility] ([facility]) albumin 4.3 gm/dL 3.2-5.2 Albumin [facility] ([facility]) ID Date Data Source [id number] 11/12/2020 09:55:00 AM EDT [place] ([facility]) Name Value Range Interpretation Code Description Data [place] rce(s) Supporting Document(s) chlamydia DNA probe negative negative Chlamydia DNA Pr obe [facility] ([facility]) GC DNA probe negative negative GC DNA Probe [facility] ([facility]) ID Date Data Source [id number] 11/12/2020 09:55:00 AM EDT [place] ([facility]) Name Value Range Interpretation Code Description Data [place] rce(s) Supporting Document(s) trichomonas vaginalis (amp) not detected negative Tricho monas Vaginalis (Amp) [place] ([facility]) ID Date Data Source [id number] 07/23/2020 12:00:00 AM EST [facility] Name Value Range Interpretation Code Description Data [place] rce(s) Supporting Document(s) SARS coronavirus 2 RNA [Presence] in Res piratory specimen by NELL with probe detection [facility] This lab was ordered by Yamileth Alonzo and reported by [employer]. ID Date Data Source [id number] 07/23/2020 12:00:00 AM EST [facility] Name Value Range Interpretation Code Description Data Ameriac rce(s) Supporting Document(s) Carestart Rapid COVID Antigen Test [facility] This lab was reported by Yamileth monk. ID Date Data Source [id number] 05/21/2020 01:43:00 PM EDT [place] ([facility]) Name Value Range Interpretation Code Description Data [place] rce(s) Supporting Document(s) chlamydia DNA probe negative negative Chlamydia DNA Pr obe [place] ([facility]) GC DNA probe negative negative GC DNA Probe [facility] ([facility]) ID Date Data Source [id number] 05/21/2020 01:43:00 PM EDT [place] ([facility]) Name Value Range Interpretation Code Description Data [place] rce(s) Supporting Document(s) HIV 1&2 screen centaur negative negative HIV 1&2 Scree n Centaur [place] ([facility]) ID Date Data Source [id number] 05/21/2020 01:43:00 PM EDT [place] ([facility]) Name Value Range Interpretation Code Description Data [place] rce(s) Supporting Document(s) syphilis nonreactive nonreactive Syphilis [facility] ([facility]) ID Date Data Source [id number] 05/21/2020 01:43:00 PM EDT [place] ([facility]) Name Value Range Interpretation Code Description Data [place] rce(s) Supporting Document(s) hepatitis B surface antigen negative negative Hepatiti s B Surface Antigen [place] ([facility]) ID Date Data Source [id number] 05/21/2020 01:43:00 PM EDT [place] ([facility]) Name Value Range Interpretation Code Description Data [place] rce(s) Supporting Document(s) hepatitis C virus jocelynn index 0.1 index <0.8 Hepatiti s C Virus Jocelynn Index [place] ([facility]) ID Date Data Source [id number] 05/21/2020 01:43:00 PM EDT [place] ([facility]) Name Value Range Interpretation Code Description Data [place] rce(s) Supporting Document(s) white blood count 10.9 10 4.0-10.0 Above high normal White Blood Count [place] ([facility]) red blood count 5.22 10 4.30-6.10 Red Blood Count [place] ([facility]) mean corpuscular hemoglobin 28.5 pg 27.0-33.0 Mean Cor puscular Hemoglobin [place] ([facility]) hematocrit 45.7 % 42.0-52.0 Hematocrit [facility] ([facility]) mean corpuscular volume 87.5 fL 80.0-96.0 Mean Corpusc ular Volume [place] ([facility]) hemoglobin 14.9 g/dL 13.5-17.5 Hemoglobin [place] ([facility]) platelet count, automated 280 10 150-450 Platelet C ount, Automated [place] ([facility]) red cell distribution width 11.9 % 11.5-14.5 Red Cell Distribution Width [place] ([facility]) mean corpuscular HGB conc 32.6 g/dL 32.0-36.5 Mean Corpu scular HGB Conc [place] ([facility]) nucleated red blood cell % 0.0 % 0-0 Nucleated Red Blood Cell % [place] ([facility]) ID Date Data Source [id number] 05/21/2020 01:43:00 PM EDT [place] ([facility]) Name Value Range Interpretation Code Description Data [place] rce(s) Supporting Document(s) GC DNA probe negative negative GC DNA Probe [facility] ([facility]) chlamydia DNA probe negative negative Chlamydia DNA Pr obe [place] ([facility]) ID Date Data Source [id number] 05/21/2020 01:43:00 PM EDT [place] ([facility]) Name Value Range Interpretation Code Description Data [place] rce(s) Supporting Document(s) HIV 1&2 screen centaur negative negative HIV 1&2 Scree n Centaur [place] ([facility]) ID Date Data Source [id number] 05/21/2020 01:43:00 PM EDT [facility]) Name Value Range Interpretation Code Description Data [place] rce(s) Supporting Document(s) syphilis nonreactive nonreactive Syphilis [place] ([facility]) ID Date Data Source [id number] 05/21/2020 01:43:00 PM EDT [facility]) Name Value Range Interpretation Code Description Data [place] rce(s) Supporting Document(s) hepatitis B surface antigen negative negative Hepatiti s B Surface Antigen [facility]) ID Date Data Source [id number] 05/21/2020 01:43:00 PM EDT [facility]) Name Value Range Interpretation Code Description Data [place] rce(s) Supporting Document(s) hepatitis C virus jocelynn index 0.1 index <0.8 Hepatiti s C Virus Jocelynn Index [facility]) ID Date Data Source [id number] 05/21/2020 01:43:00 PM EDT [facility]) Name Value Range Interpretation Code Description Data [place] rce(s) Supporting Document(s) white blood count 10.9 10 4.0-10.0 Above high normal White Blood Count [place] ([facility]) hemoglobin 14.9 g/dL 13.5-17.5 Hemoglobin [place] ([facility]) hematocrit 45.7 % 42.0-52.0 Hematocrit [place] ([facility]) red blood count 5.22 10 4.30-6.10 Red Blood Count [place] ([facility]) mean corpuscular volume 87.5 fL 80.0-96.0 Mean Corpusc ular Volume [place] ([facility]) mean corpuscular HGB conc 32.6 g/dL 32.0-36.5 Mean Corpu scular HGB Conc [facility] ([facility]) platelet count, automated 280 10 150-450 Platelet C ount, Automated [place] ([facility]) red cell distribution width 11.9 % 11.5-14.5 Red Cell Distribution Width [place] ([facility]) mean corpuscular hemoglobin 28.5 pg 27.0-33.0 Mean Cor puscular Hemoglobin [place] ([facility]) nucleated red blood cell % 0.0 % 0-0 Nucleated Red Blood Cell % [facility] ([facility]) Procedure Social History Code Duration Value Status Description Data Source(s ) Smoking 04/15/2021 12:00:00 AM EDT Former Smoker completed Former Smoker [facility] ([facility]) Smoking 04/15/2021 12:00:00 AM EDT Former Smoker completed Former Smoker [facility] ([facility]) Vital Signs ID Date Data Source [id number] Name Value Range Interpretation Code Description Data Source(s) Body weight 209 [lb_av] 209 [lb_av] [facility] ([facility]) Body weight 94.8 kg 94.8 kg [facility] ([facility]) Body height 68 [in_i] 68 [in_i] [facility] ([facility]) Body mass index (BMI) [Ratio] 31.77 kg/m2 31.77 kg/m2 [facility] ([facility]) Heart rate 86 /min 86 /min eCW1 ([facility]) Respiratory rate 18 /min 18 /min eCW1 ([facility] Body temperature 97.4 [degF] 97.4 [degF] eCW1 ( [facility]) Systolic blood pressure 124 mm[Hg] 124 mm[Hg] e CW1 ([facility]) Diastolic blood pressure 84 mm[Hg] 84 mm[Hg] eCW1 ([facility]) Diastolic blood pressure 90 mm[Hg] 90 mm[Hg] [place] ([facility]) Body height 68 [in_i] 68 [in_i] [place] ([facility]) Body mass index (BMI) [Ratio] 31.1 kg/m2 31.1 k g/m2 [facility] ([facility]) Systolic blood pressure 130 mm[Hg] 130 mm[Hg] A [facility] ([facility]) Body weight 3268 [oz_av] 3268 [oz_av] [facility] ([facility]) Diastolic blood pressure 80 mm[Hg] 80 mm[Hg] [place] ([facility]) Body height 68 [in_i] 68 [in_i] [place] ([facility]) Body mass index (BMI) [Ratio] 32.8 kg/m2 32.8 k g/m2 [facility] ([facility]) Systolic blood pressure 118 mm[Hg] 118 mm[Hg] [facility] ([facility]) Body weight 3456 [oz_av] 3456 [oz_av] [facility] ([facility]) Diastolic blood pressure 80 mm[Hg] 80 mm[Hg] [place] ([facility]) Body height 68 [in_i] 68 [in_i] [place] ([facility]) Body mass index (BMI) [Ratio] 32.8 kg/m2 32.8 k g/m2 [facility] ([facility]) Systolic blood pressure 118 mm[Hg] 118 mm[Hg] [facility] ([facility]) Body weight 3456 [oz_av] 3456 [oz_av] [place] ([facility]) Systolic blood pressure 137 mm[Hg] 137 mm[Hg] [facility] ([facility]) Body weight 3520 [oz_av] 3520 [oz_av] [place] ([facility]) Diastolic blood pressure 92 mm[Hg] 92 mm[Hg] [place] ([facility]) Body height 68 [in_i] 68 [in_i] [place] ([facility]) Body mass index (BMI) [Ratio] 33.57 kg/m2 33.57 kg/m2 [place] ([facility]) Diastolic blood pressure 92 mm[Hg] 92 mm[Hg] [place] ([facility]) Body height 68 [in_i] 68 [in_i] [place] ([facility]) Body mass index (BMI) [Ratio] 33.57 kg/m2 33.57 kg/m2 [place] ([facility]) Systolic blood pressure 137 mm[Hg] 137 mm[Hg] [facility] ([facility]) Body weight 3520 [oz_av] 3520 [oz_av] [place] ([facility]) Diastolic blood pressure 88 mm[Hg] 88 mm[Hg] [place] ([facility]) Body mass index (BMI) [Ratio] 34.09 kg/m2 34.09 kg/m2 [place] ([facility]) Systolic blood pressure 130 mm[Hg] 130 mm[Hg] A [facility] ([facility]) Body height 68 [in_i] 68 [in_i] [place] ([facility]) Body weight 3574.08 [oz_av] 3574.08 [oz_av] [facility] [place] ([facility]) Body height 68 [in_i] 68 [in_i] [place] ([facility]) Body mass index (BMI) [Ratio] 34.09 kg/m2 34.09 kg/m2 [place] ([facility]) Systolic blood pressure 130 mm[Hg] 130 mm[Hg] A [facility] ([facility]) Body weight 3574.08 [oz_av] 3574.08 [oz_av] [facility] [place] ([facility]) Diastolic blood pressure 88 mm[Hg] 88 mm[Hg] [place] ([facility]) Diastolic blood pressure 94 mm[Hg] 94 mm[Hg] [place] ([facility]) Body height 68 [in_i] 68 [in_i] [place] ([facility]) Body mass index (BMI) [Ratio] 34.35 kg/m2 34.35 kg/m2 [place] ([facility]) Systolic blood pressure 143 mm[Hg] 143 mm[Hg] A [facility] ([facility]) Body weight 3602.08 [oz_av] 3602.08 [oz_av] [facility] [place] ([facility]) Diastolic blood pressure 94 mm[Hg] 94 mm[Hg] [place] ([facility]) Body height 68 [in_i] 68 [in_i] [place] ([facility]) Body mass index (BMI) [Ratio] 34.35 kg/m2 34.35 kg/m2 [place] ([facility]) Systolic blood pressure 143 mm[Hg] 143 mm[Hg] A [facility] ([facility]) Body weight 3602.08 [oz_av] 3602.08 [oz_av] [facility] [place] ([facility]) Diastolic blood pressure 87 mm[Hg] 87 mm[Hg] [place] ([facility]) Body height 68 [in_i] 68 [in_i] [place] ([facility]) Body mass index (BMI) [Ratio] 34.51 kg/m2 34.51 kg/m2 [facility] ([facility]) Systolic blood pressure 135 mm[Hg] 135 mm[Hg] A [place] ([facility]) Body weight 3618.08 [oz_av] 3618.08 [oz_av] [facility] [place] ([facility]) Diastolic blood pressure 87 mm[Hg] 87 mm[Hg] [place] ([facility]) Body height 68 [in_i] 68 [in_i] [place] ([facility]) Body mass index (BMI) [Ratio] 34.51 kg/m2 34.51 kg/m2 [place] ([facility]) Systolic blood pressure 135 mm[Hg] 135 mm[Hg] [facility] ([facility]) Body weight 3618.08 [oz_av] 3618.08 [oz_av] [facility] [place] ([facility]) Patient Treatment Plan of Care Planned Activity Planned Date Details Description Data Source (s) Sertraline 100 MG Oral Tablet [place] ([facility]) Fluzone Quad 60 mcg (15 mcg x 4)/0.5 mL intramuscular noé p. [place] ([facility]) Fluzone Quad 60 mcg (15 mcg x 4)/0.5 mL intramuscular noé p. [facility] ([facility])
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
--- OUTSIDE RECORDS SUMMARY | 2021-06-14 12:43 | CCD ---
Author Author [facility] Organization [facility] Address Unknown Phone Unavailable Care Team Providers Care Quality Assurance Supervisor Trim Name Role Phone Liz Ferrera Unavailable PROBLEMS Type Condition ICD9-CM Code HAR08-[id number] Code Onset Dates Condition S tatus W/U Status Risk SNOMED Code Notes Problem Infertility male N46.9 Active confirmed 290 400 Problem Male infertility, unspecified N46.9 Active confirm ed [id number] ALLERGIES Allergen (clinical drug ingredient) Drug/Non Drug Allergy do cumented on EMR Reaction Allergy Type Onset Date Status Bee Sting Anaphylaxis Drug Allergy Active ENCOUNTERS from 1979 to 2021-04-16 Encounter Location Date Provider Diagnosis [facility] [address] [phone] [place] [address] Mar, Liz Ferrera Male infertility, unspecified N46.9 IMMUNIZATIONS No Information SOCIAL HISTORY Tobacco Use: Social History Observation Description Date Details (start date - stop date) Former Smoker Sex Assigned At : Social History Observation Description Sex Assigned At Unknown Language: Question Answer Notes Languages spoken: Israeli Alcohol Screening: Question Answer Notes Did you have a drink containing alcohol in the past year? No Points 0 Interpretation Negative Tobacco Use: Question Answer Notes Are you a: former smoker quit 4 month ago REASON FOR REFERRAL No Information VITAL SIGNS Weight 209 lbs Mar, Weight-kg 94.8 kg Mar, Height 68 in Mar, BMI 31.77 kg/m2 Mar, Heart Rate 86 /min Mar, Respiratory Rate 18 /min Mar, Temperature 97.4 degrees Fahrenheit Mar, Oximetry 96% Mar, Blood pressure systolic 124 mm Hg Mar, Blood pressure diastolic 84 mm Hg Mar, MEDICATIONS Medication SIG (Take, Route, Frequency, Duration) [...] Information RESULTS No Results REASON FOR VISIT semen fertility evlauation MEDICAL (GENERAL) HISTORY Type Description Date Medical [...] No Information FUNCTIONAL STATUS No Information ASSESSMENTS Encounter Date Diagnosis Assessment Notes Treatment Notes Treatm ent Clinical Notes Mar, Male infertility, unspecified (ICD-10 - N46.9) PLAN OF TREATMENT Future Test Test Name Order Date SEMEN ANALYSIS (SA) [id number] Insurance Providers Payer Name Payer Address Payer Phone Insured Name Patient Relati onship to Insured Coverage Start Date Coverage End Date [facility] [place] [address] [facility] [id number] KIM FRIAS self
[2021-06-14 13:41] LABS: BASO # 0.1 10^3/uL (0.0-0.2); BASO % 1.2 % (0.0-1.0); EOS # 0.2 10^3/uL (0.0-0.5); EOS % 2.1 % (0.0-3.0); HEMATOCRIT 44.9 % (42.0-52.0); HEMOGLOBIN 14.9 g/dl (13.5-17.5); LYMPH % 39.3 % (24.0-44.0); MEAN CORPUSCULAR HEMOGLOBIN 28.7 pg (27.0-33.0); MEAN CORPUSCULAR HGB CONC 33.2 g/dl (32.0-36.5); MEAN CORPUSCULAR VOLUME 86.5 fl (80.0-96.0); MONO # 0.5 10^3/uL (0.0-0.8); MONO % 5.9 % (2.0-8.0); NEUTROPHILS # 3.9 10^3/uL (1.5-8.5); NEUTROPHILS % 51.2 % (36.0-66.0); PLATELET COUNT, AUTOMATED 254 10^3/uL (150-450); RED BLOOD COUNT 5.19 10^6/uL (4.30-6.10); WHITE BLOOD COUNT 7.7 10^3/uL (4.0-10.0)
[2021-06-14 14:01] LABS: ALT/SGPT 44 U/L (12-78); BILIRUBIN,DIRECT 0.3 MG/DL (0.0-0.2); BILIRUBIN,TOTAL 1.2 MG/DL (0.2-1.0); BLOOD UREA NITROGEN 13 MG/DL (7-18); CALCIUM LEVEL 9.4 MG/DL (8.5-10.1); CARBON DIOXIDE LEVEL 28 MEQ/L (21-32); CHLORIDE LEVEL 108 MEQ/L (98-107); CREATININE FOR GFR 0.96 MG/DL (0.70-1.30); GLOMERULAR FILTRATION RATE > 60.0 (>60); GLUCOSE, FASTING 93 MG/DL (70-100); LIPASE 86 U/L (73-393); POTASSIUM SERUM 4.3 MEQ/L (3.5-5.1); SODIUM LEVEL 140 MEQ/L (136-145); TOTAL PROTEIN 7.3 GM/DL (6.4-8.2)
--- OUTSIDE RECORDS SUMMARY | 2021-06-14 15:22 | CCD ---
Author Author [facility] Address Unknown Phone Unavailable Care Team Providers Care Size Changer Name Role Phone Feola, T Cherry PA [...] Unavailable Feola, T Cherry PA Unavailable Unavailable Fuad Richmond MD Unavailable [...] Unavailable Unavailable Fuad Richmond MD Unavailable Unavailable uFad Richmond MD Unavailable Unavailable Fuad Richmond MD [...] Unavailable Nader Duran MD Unavailable Unavailable Nader Duarn MD Unavailable Unavailable Nader Duran MD Unavailable [...] M Kassy PA Unavailable Unavailable Scordo, M Akssy PA Unavailable Unavailable Scordo, M Kassy PA [...] is protected by Article 27-F of the [facility] Public Health law. If you continue you may have access to information: Regarding HIV / AIDS; Provided by facilities licensed or operated by the [facility] Office of Mental Health; or Provided by the [facility] Office for People With Developmental Disabilities. If such information is present, then the following [facility] mandated warning applies: This information has been [...] law may result in a fine or senior living sentence or both. A general authorization for [...] EST - 06/13/2021 08:02:36 PM EST [facility] ([facility]) Unknown [address] [facility] [address] 04/18/2021 12:00:00 AM EDT eCW1 ([facility]) Outpatient [address] [facility] [place] [address] 04/15/2021 12:00:00 AM EDT eCW1 ([facility]) Outpatient Attender: Cherry FLORES 03/04/2021 12:00:29 PM EDT [facility] ([facility]) SHELL GanC: [address], [place] [address], Ph. Attender: Kassy FLORES [facility] Medical 02/28/2021 12:00:00 AM EDT AMY ([facility]) Outpatient Attender: LAYO MCCULLOUGH [facility] 01/25 12:46:53 PM EDT - 01/25/2021 01:14:57 PM EDT [facility] ([facility] ) SHELL Gan[facility]: [address], [place] [address], Ph. Attender: Kassy FLORES [facility] Medical 11/12/2020 12:00:00 AM EDT AMY ([facility]) Kassy Moss PA-C: [address], [place] [address], Ph. Attender: Kassy FLORES [facility] Medical 11/12/2020 12:00:00 AM EDT AMY ([facility]) Outpatient Attender: Thony Richmond MD FP 05/20/2020 11:37:00 AM EDT [facility] Outpatient Attender: Thony Richmond MD FP 05/13/2020 10:14:01 AM EDT [facility] Outpatient Attender: Thony Richmond MD FP 05/06/2020 03:43:01 PM EDT [facility] Outpatient Attender: Thony Richmond MD FP 05/06/2020 02:45:00 PM EDT [facility] Outpatient Attender: Thony Richmond MD FP 05/06/2020 11:51:02 AM EDT [facility] Outpatient Attender: Thony Richmond MD FP 05/03/2020 11:44:03 AM EDT [facility] Outpatient Attender: Thony Richmond MD FP 05/02/2020 11:02:01 AM EDT [facility] Outpatient Attender: Thony Richmond MD FP 04/30/2020 11:04:01 AM EDT [facility] Outpatient Attender: Thony Richmond MD FP 04/30/2020 08:54:00 AM EDT [facility] Outpatient Attender: Thony Richmond MD FP 04/25/2020 02:23:00 PM EDT [facility] Outpatient Attender: Thony Richmond MD FP 04/25/2020 02:14:00 PM EDT [facility] Outpatient Attender: Thony Richmond MD FP 04/25/2020 10:48:01 AM EDT [facility] Outpatient Attender: Thony Richmond MD FP 04/23/2020 01:22:02 PM EDT [facility] Outpatient Attender: Thony Richmond MD FP 04/23/2020 10:18:01 AM EDT [facility] Outpatient Attender: Thony Richmond MD FP 04/22/2020 02:13:02 PM EDT [facility] Outpatient Attender: Thony Richmond MD FP 04/19/2020 08:32:03 AM EDT [facility] Outpatient Attender: Thony Richmond MD FP 04/17/2020 03:32:03 PM EDT [facility] Outpatient Attender: Thony Richmond MD FP 04/17/2020 12:33:00 PM EDT [facility] Outpatient Attender: Thony Richmond MD FP 04/15/2020 10:25:00 AM EDT [facility] Immunizations Vaccine Date Status Description Data Source(s) COVID-19 VACCINE Moderna 12/09/2020 12:00:00 AM EDT completed [facility] Vaccine Series Complete: YESThis Data wa s Submitted to [facility] Via [employer]. COVID-19 VACC,MRNA(MODERNA)/PF 11/08/2020 12:00:00 AM EDT completed [facility] COVID-19 VACCINE Moderna 11/08/2020 12:00:00 AM EDT completed [facility] Vaccine Series Complete: NOThis Data was Submitted to [facility] Via [employer]. INFLUENZA VIRUS VACCINE QUADRIVALENT 2019- (6 MOS [...] completed sertraline 100 MG Oral Tablet AMY ([facility]) Fluzone Quad 60 mcg (15 mcg x 4)/0.5 mL intramuscular susp. [id number] completed Fluzone Quad 2 -2020 60 mcg (15 mcg x 4)/0.5 mL intramuscular susp. AMY ([facility]) Fluzone Quad 60 mcg (15 mcg x 4)/0.5 mL intramuscular susp. [id number] completed Fluzone Quad 2 -2020 60 mcg (15 mcg x 4)/0.5 mL intramuscular susp. AMY ([facility]) Insurance Providers Payer name Policy type / Coverage type Policy ID Covered green party ID Covered green party's relationship to gupta Policy Gupta Plan Information [facility] [employer] [employer] [id number] SP [id number] Medicaid S [id number] S [id number] [facility] P [id number] S [id number] Managed [facility] P [id number] S [id number] [facility] [id number] SP [id number] Medicaid S [id number] S [id number] [facility] P [id number] S [id number] Medicaid S [id number] S [id number] [employer] P [id number] S [id number] [employer] P [id number] S [id number] [employer] P [id number] S [id number] [facility] S [id number] S [id number] [facility] P [id number] S [id number] Medicaid S [id number] S [id number] [facility] Commercial Insurance Co. [id number] Self [id number] [facility] Commercial Insurance Co. [id number] Self [id number] [employer] emp [id number] Employee [id number] [facility] [id number] SP [id number] Self Pay P [id number] S [id number] Self Pay P UNAVAILABLE [facility]) O [id number] S [id number] Medicaid S [id number] S [id number] [facility] [id number] SP [id number] MEDICAID [id number] SP [id number] [facility] [id number] Self 1 [id number] [facility] P [id number] S [id number] MEDICAID M [id number] S [id number] SELF PAY ONLY [id number] SP [id number] UNAVAILABLE UNAVAILA BLE SELF PAY UNAVAILABLE UNAVAILA BLE BLUE [employer] [id number] SP [id number] [facility] PLAN [facility] [id number] Problems, Conditions, and Diagnoses Code Display Name Description Problem Type Effective Dates Data Source(s) N46.9 Male infertility Male infertility, unspecified Problem 04/15/2021 12:00:00 AM EDT eCW1 ([facility]) N46.9 Male infertility Infertility male Problem 03/05/2021 12 :00:00 AM EDT eCW1 ([facility]) [id number] Secondary erectile dysfunction Secondary Erectile Dysf unction Problem 04/25/2020 12:00:00 AM EDT AMY ([facility]) [id number] 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 Negative Dysphotopsia Problem 04/25/2020 12:00:00 AM EDT AMY ([facility]) [id number] Obstructive sleep apnea syndrome Obstructive Sle ep Apnea Syndrome Problem 04/25/2020 12:00:00 AM EDT PUTNEY ([facility]) [id number] Secondary erectile dysfunction Secondary Erectile Dysf unction Problem 04/25/2020 12:00:00 AM EDT AMY ([facility]) [id number] 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 Negative Dysphotopsia Problem 04/25/2020 12:00:00 AM EDT AMY ([facility]) 85603219 Obstructive sleep apnea syndrome Obstructive Sle ep Apnea Syndrome Problem 04/25/2020 12:00:00 AM EDT [facility] ([facility]) [id number] Disorder of upper respiratory system Dis order of Upper Respiratory System Problem 06/08/2019 12:00:00 AM EST - 11/12/2020 12:00:00 AM EDT P[facility]NEY ([facility]) [id number] Disorder of upper respiratory system Dis order of Upper Respiratory System Problem 06/08/2019 12:00:00 AM EST - 11/12/2020 12:00:00 AM EDT PUTNEY ([facility]) [id number] Finding of general energy Finding of General Energy Pr oblem 09/07/2018 12:00:00 AM EST - 11/12/2020 12:00:00 AM EDT AMY ([facility]) [id number] Finding of general energy Finding of General Energy Pr oblem 09/07/2018 12:00:00 AM EST - 11/12/2020 12:00:00 AM EDT AMY ([facility]) [id number] Chest pain Chest Pain Problem 09/22/2017 12:0 0:00 AM EST - 11/12/2020 12:00:00 AM EDT AMY ([facility]) [id number] Chest pain Chest Pain Problem 09/22/2017 12:0 0:00 AM EST - 11/12/2020 12:00:00 AM EDT AMY ([facility]) [id number] Procedure by method Procedure by Method Problem 1 09/02/2016 12:00:00 AM EST - 11/12/2020 12:00:00 AM EDT AMY ([facility]) [id number] Procedure by method Procedure by Method Problem 1 09/02/2016 12:00:00 AM EST - 11/12/2020 12:00:00 AM EDT AMY ([facility]) Surgeries/Procedures No Information Results ID Date Data Source [id number] 11/12/2020 09:55:00 AM EDT PUTNEY ([facility]) Name Value Range Interpretation Code Description Data [place] rce(s) Supporting Document(s) HIV 1&2 screen centaur negative negative HIV 1&2 Scree n Centaur P[facility]NEY ([facility]) ID Date Data Source [id number] 11/12/2020 09:55:00 AM EDT P[facility]NEY ([facility]) Name Value Range Interpretation Code Description Data [place] rce(s) Supporting Document(s) syphilis nonreactive nonreactive Syphilis AMY ([facility]) ID Date Data Source [id number] 11/12/2020 09:55:00 AM EDT [facility]) Name Value Range Interpretation Code Description Data [place] rce(s) Supporting Document(s) total 25(oh) vitamin D 23.4 NG/mL 30.0-100.0 Below low normal T otal 25(Oh) Vitamin D P[facility]NEY ([facility]) ID Date Data Source [id number] 11/12/2020 09:55:00 AM EDT [facility]) Name Value Range Interpretation Code Description Data [place] rce(s) Supporting Document(s) thyroid stimulating hormone 1.600 uIU/mL 0.358-3.740 Thyroid Stimulating Hormone P[facility]NEY ([facility]) free T4 0.96 NG/dL 0.76-1.46 Free T4 [facility]) ID Date Data Source [id number] 11/12/2020 09:55:00 AM EDT [facility]) Name Value Range Interpretation Code Description Data [place] rce(s) Supporting Document(s) hepatitis B surface antigen negative negative Hepatiti s B Surface Antigen [facility]) ID Date Data Source [id number] 11/12/2020 09:55:00 AM EDT [facility]) Name Value Range Interpretation Code Description Data [place] rce(s) Supporting Document(s) hepatitis C virus jocelynn index 0.0 index <0.8 Hepatiti s C Virus Jocelynn Index [facility]) ID Date Data Source [id number] 11/12/2020 09:55:00 AM EDT [facility]) Name Value Range Interpretation Code Description Data [place] rce(s) Supporting Document(s) glucose, fasting 93 mg/dL 70-100 Glucose, Fasting AT [facility] ([facility]) creatinine for GFR 0.87 mg/dL 0.70-1.30 Creatinine for GF R PUTNEY ([facility]) blood urea nitrogen 10 mg/dL 7-18 Blood Urea Nitro gen AMY ([facility]) glomerular filtration rate > 60.0 >60 Glomerula r Filtration Rate [facility]NEY ([facility]) chloride level 106 mEq/L 98-107 Chloride Level AMY ([facility]) sodium level 139 mEq/L 136-145 Sodium Level AMY ([facility]) potassium serum 4.8 mEq/L 3.5-5.1 Potassium Serum ATHE ([facility]) AST/SGOT 31 U/L 7-37 AST/SGOT AMY ([facility]) carbon dioxide level 29 mEq/L 21-32 Carbon Dioxide Level AMY ([facility]) calcium level 9.1 mg/dL 8.5-10.1 Calcium Level AMY ( [facility]) anion gap 4 mEq/L 8-16 Below low normal Anion Gap AMY ( [facility]) ALT/SGPT 63 U/L 12-78 ALT/SGPT AMY ([facility]) bilirubin,total 0.6 mg/dL 0.2-1.0 Bilirubin,total ATHE NA ([facility]) alkaline phosphatase 94 U/L 45-117 Alkaline Phosph atase AMY ([facility]) total protein 7.2 gm/dL 6.4-8.2 Total Protein AMY ( [facility]) albumin/globulin ratio Albumin/globu kamron Ratio AMY ([facility]) albumin 4.3 gm/dL 3.2-5.2 Albumin AMY ([facility]) ID Date Data Source [id number] 11/12/2020 09:55:00 AM EDT [facility] ([facility]) Name Value Range Interpretation Code Description Data [place] rce(s) Supporting Document(s) chlamydia DNA probe negative negative Chlamydia DNA Pr obe AMY ([facility]) GC DNA probe negative negative GC DNA Probe AMY ([facility]) ID Date Data Source [id number] 11/12/2020 09:55:00 AM EDT [facility] ([facility]) Name Value Range Interpretation Code Description Data [place] rce(s) Supporting Document(s) trichomonas vaginalis (amp) not detected negative Tricho monas Vaginalis (Amp) AMY ([facility]) ID Date Data Source [id number] 07/23/2020 12:00:00 AM EST [facility] Name Value Range Interpretation Code Description Data [place] rce(s) Supporting Document(s) SARS coronavirus 2 RNA [Presence] in Res piratory specimen by NELL with probe detection [facility] This lab was ordered by Yamileth Alonzo and reported by [employer] ID Date Data Source [id number] 07/23/2020 12:00:00 AM EST [facility] Name Value Range Interpretation Code Description Data [place] rce(s) Supporting Document(s) Carestart Rapid COVID Antigen Test [facility] This lab was reported by Yamileth monk. ID Date Data Source [id number] 05/21/2020 01:43:00 PM EDT [facility] ([facility]) Name Value Range Interpretation Code Description Data [place] rce(s) Supporting Document(s) chlamydia DNA probe negative negative Chlamydia DNA Pr obe [facility] ([facility]) GC DNA probe negative negative GC DNA Probe AMY ([facility]) ID Date Data Source [id number] 05/21/2020 01:43:00 PM EDT [facility] ([facility]) Name Value Range Interpretation Code Description Data [place] rce(s) Supporting Document(s) HIV 1&2 screen centaur negative negative HIV 1&2 Scree n Centaur AMY ([facility]) ID Date Data Source [id number] 05/21/2020 01:43:00 PM EDT [facility] ([facility]) Name Value Range Interpretation Code Description Data [place] rce(s) Supporting Document(s) syphilis nonreactive nonreactive Syphilis AMY ([facility]) ID Date Data Source [id number] 05/21/2020 01:43:00 PM EDT [facility] ([facility]) Name Value Range Interpretation Code Description Data [place] rce(s) Supporting Document(s) hepatitis B surface antigen negative negative Hepatiti s B Surface Antigen AMY ([facility]) ID Date Data Source [id number] 05/21/2020 01:43:00 PM EDT AMY ([facility]) Name Value Range Interpretation Code Description Data [place] rce(s) Supporting Document(s) hepatitis C virus jocelynn index 0.1 index <0.8 Hepatiti s C Virus Jocelynn Index AMY ([facility]) ID Date Data Source [id number] 05/21/2020 01:43:00 PM EDT AMY ([facility]) Name Value Range Interpretation Code Description Data [place] rce(s) Supporting Document(s) white blood count 10.9 10 4.0-10.0 Above high normal White Blood Count AMY ([facility]) red blood count 5.22 10 4.30-6.10 Red Blood Count AT[facility] ([facility]) mean corpuscular hemoglobin 28.5 pg 27.0-33.0 Mean Cor puscular Hemoglobin AMY ([facility]) hematocrit 45.7 % 42.0-52.0 Hematocrit AMY ([facility]) mean corpuscular volume 87.5 fL 80.0-96.0 Mean Corpusc ular Volume AMY ([facility]) hemoglobin 14.9 g/dL 13.5-17.5 Hemoglobin AMY ([facility]) platelet count, automated 280 10 150-450 Platelet C ount, Automated AMY ([facility]) red cell distribution width 11.9 % 11.5-14.5 Red Cell Distribution Width AMY ([facility]) mean corpuscular HGB conc 32.6 g/dL 32.0-36.5 Mean Corpu scular HGB Conc AMY ([facility]) nucleated red blood cell % 0.0 % 0-0 Nucleated Red Blood Cell % AMY ([facility]) ID Date Data Source [id number] 05/21/2020 01:43:00 PM EDT [facility] ([facility]) Name Value Range Interpretation Code Description Data [place] rce(s) Supporting Document(s) GC DNA probe negative negative GC DNA Probe AMY (No [facility]) chlamydia DNA probe negative negative Chlamydia DNA Pr obe [facility] ([facility]) ID Date Data Source [id number] 05/21/2020 01:43:00 PM EDT [facility] ([facility]) Name Value Range Interpretation Code Description Data [place] rce(s) Supporting Document(s) HIV 1&2 screen centaur negative negative HIV 1&2 Scree n Centaur [facility] ([facility]) ID Date Data Source [id number] 05/21/2020 01:43:00 PM EDT [facility]) Name Value Range Interpretation Code Description Data [place] rce(s) Supporting Document(s) syphilis nonreactive nonreactive Syphilis AMY ([facility]) ID Date Data Source [id number] 05/21/2020 01:43:00 PM EDT [facility]) Name Value Range Interpretation Code Description Data [place] rce(s) Supporting Document(s) hepatitis B surface antigen negative negative Hepatiti s B Surface Antigen [facility]) ID Date Data Source [id number] 05/21/2020 01:43:00 PM EDT [facility]) Name Value Range Interpretation Code Description Data [place] rce(s) Supporting Document(s) hepatitis C virus jocelynn index 0.1 index <0.8 Hepatiti s C Virus Jocelynn Index [facility]) ID Date Data Source [id number] 05/21/2020 01:43:00 PM EDT [facility]) Name Value Range Interpretation Code Description Data [place] rce(s) Supporting Document(s) white blood count 10.9 10 4.0-10.0 Above high normal White Blood Count AMY ([facility]) hemoglobin 14.9 g/dL 13.5-17.5 Hemoglobin AMY ([facility]) hematocrit 45.7 % 42.0-52.0 Hematocrit AMY ([facility]) red blood count 5.22 10 4.30-6.10 Red Blood Count ATHE NA ([facility]) mean corpuscular volume 87.5 fL 80.0-96.0 Mean Corpusc ular Volume AMY ([facility]) mean corpuscular HGB conc 32.6 g/dL 32.0-36.5 Mean Corpu scular HGB Conc AMY ([facility]) platelet count, automated 280 10 150-450 Platelet C ount, Automated AMY ([facility]) red cell distribution width 11.9 % 11.5-14.5 Red Cell Distribution Width AMY ([facility]) mean corpuscular hemoglobin 28.5 pg 27.0-33.0 Mean Cor puscular Hemoglobin AMY ([facility]) nucleated red blood cell % 0.0 % 0-0 Nucleated Red Blood Cell % AMY ([facility]) Procedure Social History Code Duration Value Status Description Data Source(s ) Smoking 04/15/2021 12:00:00 AM EDT Former Smoker completed Former Smoker [facility] ([facility]) Smoking 04/15/2021 12:00:00 AM EDT Former Smoker completed Former Smoker [facility] ([facility]) Vital Signs ID Date Data Source UNK Name Value Range Interpretation Code Description Data Source(s) Body weight 209 [lb_av] 209 [lb_av] [facility] ([facility]) Body weight 94.[address] [facility] ([facility]) Body height 68 [in_i] 68 [in_i] [facility] ([facility]) Body mass index (BMI) [Ratio] 31.77 kg/m2 31.77 kg/m2 [facility] ([facility]) Heart rate 86 /min 86 /min eCW1 ([facility]) Respiratory rate 18 /min 18 /min eCW1 ([facility]) Body temperature 97.4 [degF] 97.4 [degF] eCW1 ( [facility]) Systolic blood pressure 124 mm[Hg] 124 mm[Hg] e CW1 ([facility]) Diastolic blood pressure 84 mm[Hg] 84 mm[Hg] eCW1 ([facility]) Diastolic blood pressure 90 mm[Hg] 90 mm[Hg] AMY ([facility]) Body height 68 [in_i] 68 [in_i] AMY ([facility]) Body mass index (BMI) [Ratio] 31.1 kg/m2 31.1 k g/m2 AMY ([facility]) Systolic blood pressure 130 mm[Hg] 130 mm[Hg] [facility] ([facility]) Body weight 3268 [oz_av] 3268 [oz_av] AMY ([facility]) Diastolic blood pressure 80 mm[Hg] 80 mm[Hg] AMY ([facility]) Body height 68 [in_i] 68 [in_i] AMY ([facility]) Body mass index (BMI) [Ratio] 32.8 kg/m2 32.8 k g/m2 AMY ([facility]) Systolic blood pressure 118 mm[Hg] 118 mm[Hg] [facility] ([facility]) Body weight 3456 [oz_av] 3456 [oz_av] AMY ([facility]) Diastolic blood pressure 80 mm[Hg] 80 mm[Hg] AMY ([facility]) Body height 68 [in_i] 68 [in_i] AM[facility] ([facility]) Body mass index (BMI) [Ratio] 32.8 kg/m2 32.8 k g/m2 AM[facility] ([facility]) Systolic blood pressure 118 mm[Hg] 118 mm[Hg] [facility] ([facility]) Body weight 3456 [oz_av] 3456 [oz_av] AM[facility] ([facility]) Systolic blood pressure 137 mm[Hg] 137 mm[Hg] [facility] ([facility]) Body weight 3520 [oz_av] 3520 [oz_av] AM[facility] ([facility]) Diastolic blood pressure 92 mm[Hg] 92 mm[Hg] AMY ([facility]) Body height 68 [in_i] 68 [in_i] AM[facility] ([facility]) Body mass index (BMI) [Ratio] 33.57 kg/m2 33.57 kg/m2 AM[facility] ([facility]) Diastolic blood pressure 92 mm[Hg] 92 mm[Hg] AM[facility] ([facility]) Body height 68 [in_i] 68 [in_i] AM[facility] ([facility]) Body mass index (BMI) [Ratio] 33.57 kg/m2 33.57 kg/m2 AM[facility] ([facility]) Systolic blood pressure 137 mm[Hg] 137 mm[Hg] [facility] ([facility]) Body weight 3520 [oz_av] 3520 [oz_av] AM[facility] ([facility]) Diastolic blood pressure 88 mm[Hg] 88 mm[Hg] AMY ([facility]) Body height 68 [in_i] 68 [in_i] AM[facility] ([facility]) Body mass index (BMI) [Ratio] 34.09 kg/m2 34.09 kg/m2 AMY ([facility]) Systolic blood pressure 130 mm[Hg] 130 mm[Hg] A [facility] ([facility]) Body weight 3574.08 [oz_av] 3574.08 [oz_av] ATH JORD[facility] ([facility]) Body height 68 [in_i] 68 [in_i] AMY ([facility]) Body mass index (BMI) [Ratio] 34.09 kg/m2 34.09 kg/m2 AMY ([facility]) Systolic blood pressure 130 mm[Hg] 130 mm[Hg] [facility] Body weight 3574.08 [oz_av] 3574.08 [oz_av] ATH JORDYN ([facility]) Diastolic blood pressure 88 mm[Hg] 88 mm[Hg] AMY ([facility]) Diastolic blood pressure 94 mm[Hg] 94 mm[Hg] AMY ([facility]) Body height 68 [in_i] 68 [in_i] AMY ([facility]) Body mass index (BMI) [Ratio] 34.35 kg/m2 34.35 kg/m2 AMY ([facility]) Systolic blood pressure 143 mm[Hg] 143 mm[Hg] [facility]) Body weight 3602.08 [oz_av] 3602.08 [oz_av] ATH JORDYN ([facility]) Diastolic blood pressure 94 mm[Hg] 94 mm[Hg] AMY ([facility]) Body height 68 [in_i] 68 [in_i] AMY ([facility]) Body mass index (BMI) [Ratio] 34.35 kg/m2 34.35 kg/m2 AMY ([facility]) Systolic blood pressure 143 mm[Hg] 143 mm[Hg] A [facility] ([facility]) Body weight 3602.08 [oz_av] 3602.08 [oz_av] ATH JORDYN ([facility]) Diastolic blood pressure 87 mm[Hg] 87 mm[Hg] AMY ([facility]) Body height 68 [in_i] 68 [in_i] AMY ([facility]) Body mass index (BMI) [Ratio] 34.51 kg/m2 34.51 kg/m2 AMY ([facility]) Systolic blood pressure 135 mm[Hg] 135 mm[Hg] A THENA ([facility]) Body weight 3618.08 [oz_av] 3618.08 [oz_av] ATH JORDYN ([facility]) Diastolic blood pressure 87 mm[Hg] 87 mm[Hg] AMY ([facility]) Body height 68 [in_i] 68 [in_i] AMY ([facility]) Body mass index (BMI) [Ratio] 34.51 kg/m2 34.51 kg/m2 AMY ([facility]) Systolic blood pressure 135 mm[Hg] 135 mm[Hg] A [facility] ([facility]) Body weight 3618.08 [oz_av] 3618.08 [oz_av] ATH JORDYN ([facility]) Patient Treatment Plan of Care Planned Activity Planned Date Details Description Data Source (s) Sertraline 100 MG Oral Tablet AMY ([facility]) Fluzone Quad 60 mcg (15 mcg x 4)/0.5 mL intramuscular noé p. AMY ([facility]) Fluzone Quad 60 mcg (15 mcg x 4)/0.5 mL intramuscular noé p. AMY ([facility])
--- NOTE | 2021-06-14 17:02 | REP ---
INDICATION: abd pain, constipation COMPARISON: 03/13/2010 TECHNIQUE: Supine view of the abdomen and pelvis. FINDINGS: Bowel gas pattern is nonspecific and without obstruction or perforation. Mild fecal stasis cannot be excluded. No organomegaly. Calcifications in the pelvis consistent with phleboliths. Skeletal structures intact. IMPRESSION: Normal abdominal radiograph. Mild fecal stasis cannot be excluded. <Electronically signed by Alex Mcneil > 06/14/21 [id number]
[2021-06-14] MEDS ORDERED: COLA100C5 PO (17:36)
[2021-06-14] MEDS ORDERED: MIRA3350 PO (17:36)
[2021-06-14 18:00] VITALS: BP 138/88
== END 2021-06-14 18:02 | disposition home or self-care (01) ==
LOC: M ED 12:36
DX: K59.00 Constipation, unspecified (principal); R10.9 Unspecified abdominal pain; Z79.899 Other long term (current) drug therapy

== ENCOUNTER 2021-09-27 21:33 | Emergency (ER) | payer OTHER ==
[~2021-09-27] VITALS: Ht 170.2 cm; Wt 88.6 kg
[~2021-09-27 21:33] MED LIST changes: +COLA100C5 PO; +MIRA3350 PO
[2021-09-27 22:02] LABS: BASO # 0.1 10^3/uL (0.0-0.2); BASO % 0.9 % (0.0-1.0); EOS # 0.2 10^3/uL (0.0-0.5); EOS % 1.9 % (0.0-3.0); HEMOGLOBIN 15.6 g/dl (13.5-17.5); LYMPH # 3.5 10^3/uL (1.5-5.0); LYMPH % 41.1 % (24.0-44.0); MEAN CORPUSCULAR HEMOGLOBIN 28.5 pg (27.0-33.0); MEAN CORPUSCULAR HGB CONC 33.2 g/dl (32.0-36.5); MEAN CORPUSCULAR VOLUME 85.9 fl (80.0-96.0); MONO # 0.6 10^3/uL (0.0-0.8); MONO % 6.9 % (2.0-8.0); NEUTROPHILS # 4.1 10^3/uL (1.5-8.5); NEUTROPHILS % 48.8 % (36.0-66.0); PLATELET COUNT, AUTOMATED 243 10^3/uL (150-450); RED BLOOD COUNT 5.47 10^6/uL (4.30-6.10); WHITE BLOOD COUNT 8.5 10^3/uL (4.0-10.0)
[2021-09-27] MEDS ORDERED: GI COCKTAIL 50ML BTL(HYOSCYAMINE/MAALOX/LIDOCAINE VISCOUS)(1:3:1) PO ONE (22:35)
[2021-09-27 22:40] LABS: BLOOD UREA NITROGEN 8 MG/DL (7-18); CALCIUM LEVEL 9.3 MG/DL (8.5-10.1); CARBON DIOXIDE LEVEL 27 MEQ/L (21-32); CHLORIDE LEVEL 104 MEQ/L (98-107); CK-MB VALUE MASS 2.8 NG/ML (<3.6); CREATININE FOR GFR 0.93 MG/DL (0.70-1.30); GLOMERULAR FILTRATION RATE > 60.0 (>60); GLUCOSE, FASTING 92 MG/DL (70-100); MB/CK RELATIVE INDEX 1.2 (< OR =4); POTASSIUM SERUM 4.2 MEQ/L (3.5-5.1); SODIUM LEVEL 139 MEQ/L (136-145)
[2021-09-27 22:45] VITALS: BP 117/69
[2021-09-27] MEDS ORDERED: SUCR1SS PO (23:02)
[2021-09-28] MEDS ORDERED: CARA1TAB6 PO (13:16)
== END 2021-09-27 23:12 | disposition home or self-care (01) ==
LOC: M ED 21:33
DX: K29.70 Gastritis, unspecified, without bleeding (principal); K21.9 Gastro-esophageal reflux disease without esophagitis; F17.290 Nicotine dependence, other tobacco product, uncomplicated; Z79.899 Other long term (current) drug therapy

== ENCOUNTER → 2021-10-24 | Outpatient (CLI) | payer OTHER ==
[~2021-10-24] MED LIST changes: +CARA1TAB6 PO; +SUCR1SS PO
[2021-10-24 13:02] LABS: HEMATOCRIT 45.3 % (42.0-52.0); MEAN CORPUSCULAR HEMOGLOBIN 28.8 pg (27.0-33.0); MEAN CORPUSCULAR HGB CONC 33.1 g/dl (32.0-36.5); MEAN CORPUSCULAR VOLUME 86.9 fl (80.0-96.0); PLATELET COUNT, AUTOMATED 233 10^3/uL (150-450); RED BLOOD COUNT 5.21 10^6/uL (4.30-6.10); WHITE BLOOD COUNT 7.2 10^3/uL (4.0-10.0)
[2021-10-24 13:34] LABS: ALBUMIN 4.1 GM/DL (3.2-5.2); ALT/SGPT 69 U/L (12-78); BILIRUBIN,TOTAL 0.9 MG/DL (0.2-1.0); BLOOD UREA NITROGEN 12 MG/DL (7-18); CALCIUM LEVEL 8.9 MG/DL (8.5-10.1); CARBON DIOXIDE LEVEL 30 MEQ/L (21-32); CHLORIDE LEVEL 107 MEQ/L (98-107); CREATININE FOR GFR 0.96 MG/DL (0.70-1.30); GLOMERULAR FILTRATION RATE > 60.0 (>60); GLUCOSE, FASTING 111 MG/DL (70-100); POTASSIUM SERUM 4.5 MEQ/L (3.5-5.1); SODIUM LEVEL 139 MEQ/L (136-145); TOTAL PROTEIN 7.2 GM/DL (6.4-8.2)
[2021-10-24 13:52] LABS: HEPATITIS B SURFACE ANTIGEN NEGATIVE (NEGATIVE)
[2021-10-24 14:20] LABS: HEPATITIS C VIRUS ABY INDEX 0.2 INDEX (<0.8); HIV 1&2 SCREEN CENTAUR NEGATIVE (NEGATIVE)
[2021-10-24 14:26] LABS: GC DNA AMPLIFICATION NEGATIVE (NEGATIVE)
== END ==
LOC: M WUC 10:13
PROVIDERS: ATTEND Family Medicine
DX: F11.20 Opioid dependence, uncomplicated (principal)

== ENCOUNTER 2021-11-15 07:08 | Emergency (ER) | payer OTHER ==
[~2021-11-15] VITALS: Ht 172.7 cm; Wt 96.6 kg
[2021-11-15 07:44] VITALS: BP 142/88
== END 2021-11-15 07:48 | disposition home or self-care (01) ==
LOC: M ED 07:08
DX: Z13.9 Encounter for screening, unspecified (principal); K21.9 Gastro-esophageal reflux disease without esophagitis; F17.290 Nicotine dependence, other tobacco product, uncomplicated; Z79.899 Other long term (current) drug therapy

== ENCOUNTER 2022-02-24 06:42 | Emergency (ER) | payer OTHER ==
[~2022-02-24] VITALS: Ht 172.7 cm; Wt 86.4 kg
[2022-02-24 06:44] VITALS: BP 133/91
[2022-02-24] MEDS ORDERED: IBUPROFEN 800 MG TAB PO ONE (09:30)
== END 2022-02-24 10:59 | disposition home or self-care (01) ==
LOC: M ED 06:42
DX: M25.512 Pain in left shoulder (principal); F17.200 Nicotine dependence, unspecified, uncomplicated; Z79.899 Other long term (current) drug therapy

== ENCOUNTER → 2022-06-11 | Outpatient (CLI) | payer OTHER ==
[2022-06-11 12:28] LABS: HEMATOCRIT 42.1 % (42.0-52.0); HEMOGLOBIN 14.2 g/dl (13.5-17.5); MEAN CORPUSCULAR HGB CONC 33.7 g/dl (32.0-36.5); MEAN CORPUSCULAR VOLUME 85.9 fl (80.0-96.0); PLATELET COUNT, AUTOMATED 249 10^3/uL (150-450); WHITE BLOOD COUNT 6.4 10^3/uL (4.0-10.0)
[2022-06-11 13:40] LABS: ALBUMIN 3.9 G/DL (3.2-5.2); ALT/SGPT 24 U/L (7.0-40); BILIRUBIN,TOTAL 0.6 MG/DL (0.3-1.2); BLOOD UREA NITROGEN 15 MG/DL (9-23); CALCIUM LEVEL 9.5 MG/DL (8.5-10.1); CARBON DIOXIDE LEVEL 27 MMOL/L (20-31); CHLORIDE LEVEL 103 MMOL/L (98-107); CHOLESTEROL LEVEL 158 MG/DL (<200); CHOLESTEROL RISK RATIO 3.26 (<5); CREATININE FOR GFR 0.76 MG/DL (0.70-1.30); GLOMERULAR FILTRATION RATE > 60.0 (>60); GLUCOSE, FASTING 118 MG/DL (60-100); HDL CHOLESTEROL 48.4 MG/DL (>40); NON-HDL-C 110 MG/DL; POTASSIUM SERUM 4.2 MMOL/L (3.5-5.1); SODIUM LEVEL 140 MMOL/L (136-145); TESTOSTERONE 462 NG/DL (241-827); THYROID STIMULATING HORMONE 1.619 uIU/ML (0.55-4.78); TOTAL PROTEIN 6.4 G/DL (5.7-8.2); TRIGLYCERIDES LEVEL 148 MG/DL (<150)
== END ==
LOC: M LAB 11:29
PROVIDERS: ATTEND Physician Assistant
DX: Z13.220 Encounter for screening for lipoid disorders (principal); E55.9 Vitamin D deficiency, unspecified; F52.4 Premature ejaculation

== ENCOUNTER → 2022-08-13 | Outpatient (CLI) | payer OTHER ==
[~2022-08-13] MED LIST changes: +E-Z-GAS II EFFERVESCENT PACKET (SODIUM BICARB./CITRIC ACID/SIMETHICONE) As Ordered ONE; +E-Z-HD 98% w/w 340GM SUSP BTL As Ordered ONE; +E-Z-PAQUE 96% w/w SUSP 176GM BTL As Ordered ONE
== END ==
LOC: M RAD 09:55
PROVIDERS: ATTEND Physician Assistant
DX: K21.00 Gastro-esophageal reflux disease with esophagitis, without bleeding (principal)

== ENCOUNTER 2022-10-09 08:07 | Emergency (ER) | payer OTHER ==
[~2022-10-09] VITALS: Ht 172.7 cm; Wt 96.4 kg
[~2022-10-09 08:07] MED LIST changes: -E-Z-GAS II EFFERVESCENT PACKET (SODIUM BICARB./CITRIC ACID/SIMETHICONE) As Ordered ONE; -E-Z-HD 98% w/w 340GM SUSP BTL As Ordered ONE; -E-Z-PAQUE 96% w/w SUSP 176GM BTL As Ordered ONE
[2022-10-09] MEDS ORDERED: NS 1,000 ML IV ONE (09:20)
[2022-10-09 10:28] LABS: BASO # 0.1 10^3/uL (0.0-0.2); BASO % 1.3 % (0.0-1.0); EOS # 0.2 10^3/uL (0.0-0.5); EOS % 2.7 % (0.0-3.0); HEMATOCRIT 43.4 % (42.0-52.0); HEMOGLOBIN 14.5 g/dl (13.5-17.5); LYMPH % 43.7 % (24.0-44.0); MEAN CORPUSCULAR HEMOGLOBIN 28.9 pg (27.0-33.0); MEAN CORPUSCULAR HGB CONC 33.4 g/dl (32.0-36.5); MEAN CORPUSCULAR VOLUME 86.6 fl (80.0-96.0); MONO # 0.4 10^3/uL (0.0-0.8); MONO % 6.2 % (2.0-8.0); NEUTROPHILS # 3.2 10^3/uL (1.5-8.5); NEUTROPHILS % 45.8 % (36.0-66.0); PLATELET COUNT, AUTOMATED 243 10^3/uL (150-450); RED BLOOD COUNT 5.01 10^6/uL (4.30-6.10)
[2022-10-09 11:06] LABS: ALBUMIN 4.1 G/DL (3.2-5.2); BILIRUBIN,DIRECT 0.2 MG/DL (<0.4); TOTAL PROTEIN 7.1 G/DL (5.7-8.2)
[2022-10-09] MEDS ORDERED: ISOVUE-370 76% 100ML VIAL As Ordered ONE (11:06)
[2022-10-09] MEDS ORDERED: OMEP40CA4 PO (12:46)
[2022-10-09] MEDS ORDERED: MIRA3350 PO (12:46)
[2022-10-09] MEDS ORDERED: COLA100C5 PO (12:46)
[2022-10-09 13:05] VITALS: BP 145/98
== END 2022-10-09 13:07 | disposition home or self-care (01) ==
LOC: M ED 08:07
DX: K59.00 Constipation, unspecified (principal); K76.0 Fatty (change of) liver, not elsewhere classified; K21.9 Gastro-esophageal reflux disease without esophagitis; K29.70 Gastritis, unspecified, without bleeding; M25.531 Pain in right wrist; J84.10 Pulmonary fibrosis, unspecified; F19.10 Other psychoactive substance abuse, uncomplicated; F41.9 Anxiety disorder, unspecified; F17.290 Nicotine dependence, other tobacco product, uncomplicated; Z79.899 Other long term (current) drug therapy
CPT/HCPCS: 73110; 74177; 76705; 80047; 80076; 83605; 83690; 85025; 96360; 96361; 99284; Q9967

== ENCOUNTER 2023-03-04 07:32 | Emergency (ER) | payer OTHER ==
[~2023-03-04] VITALS: Ht 172.7 cm; Wt 84.7 kg
[~2023-03-04 07:32] MED LIST changes: +OMEP40CA4 PO
[2023-03-04 10:12] VITALS: TEMP 97.6; O2SAT 98
[2023-03-04] MEDS: EXCEDRIN MIGRAINE TABLET PO STA (11:17)
[2023-03-04 11:41] VITALS: BP 142/92
== END 2023-03-04 11:58 | disposition home or self-care (01) ==
LOC: M ED 07:32
DX: G43.909 Migraine, unspecified, not intractable, without status migrainosus (principal); Z79.899 Other long term (current) drug therapy

== ENCOUNTER 2023-11-16 16:15 | Emergency (ER) | payer MEDICAID, OTHER ==
[~2023-11-16] VITALS: Ht 167.6 cm; Wt 86.6 kg
[2023-11-16] MEDS ORDERED: METH50TA10 PO (16:35)
[2023-11-16 17:30] VITALS: BP 122/88; TEMP 98; O2SAT 96
== END 2023-11-16 17:52 | disposition left against medical advice (07) ==
LOC: M ED 16:15
DX: Z53.21 Procedure and treatment not carried out due to patient leaving prior to being seen by health care provider (principal)

== ENCOUNTER → 2023-12-13 | Outpatient (CLI) | payer OTHER ==
[~2023-12-13] MED LIST changes: +METH50TA10 PO
[2023-12-13 17:15] LABS: HEMATOCRIT 41.5 % (42.0-52.0); HEMOGLOBIN 14.1 g/dl (13.5-17.5); MEAN CORPUSCULAR HEMOGLOBIN 29.6 pg (27.0-33.0); PLATELET COUNT, AUTOMATED 208 10^3/uL (150-450); RED BLOOD COUNT 4.77 10^6/uL (4.30-6.10); WHITE BLOOD COUNT 7.7 10^3/uL (4.0-10.0)
[2023-12-13 17:18] LABS: ALBUMIN 4.2 G/DL (3.2-5.2); ALKALINE PHOSPHATASE 102 U/L (46-116); ALT/SGPT 63 U/L (7.0-40); AST/SGOT 25 U/L (<34); BILIRUBIN,TOTAL 1.5 MG/DL (0.3-1.2); BLOOD UREA NITROGEN 11 MG/DL (9-23); CALCIUM LEVEL 9.1 MG/DL (8.5-10.1); CARBON DIOXIDE LEVEL 27 MMOL/L (20-31); CHLORIDE LEVEL 106 MMOL/L (98-107); CREATININE FOR GFR 0.92 MG/DL (0.70-1.30); GLOMERULAR FILTRATION RATE > 60.0 (>60); GLUCOSE, FASTING 78 MG/DL (60-100); SODIUM LEVEL 139 MMOL/L (136-145); TOTAL PROTEIN 6.8 G/DL (5.7-8.2)
[2023-12-13 17:56] LABS: HEPATITIS B SURFACE ANTIGEN NEGATIVE (NEGATIVE)
[2023-12-13 18:08] LABS: HIV 1&2 SCREEN NEGATIVE (NEGATIVE)
[2023-12-13 18:17] LABS: HEPATITIS C VIRUS ABY INDEX < 0.02 INDEX (<0.8)
[2023-12-13 19:36] LABS: GC DNA AMPLIFICATION NEGATIVE (NEGATIVE)
== END ==
LOC: M LAB 16:07
PROVIDERS: ATTEND Family Medicine
DX: F11.20 Opioid dependence, uncomplicated (principal)

== ENCOUNTER 2025-03-13 21:53 | Emergency (ER) | payer OTHER ==
[~2025-03-13] VITALS: Ht 170.2 cm; Wt 82.1 kg
[~2025-03-13 21:53] MED LIST changes: +METH-1177 PO; +OMEP40CA5; +SUCR1TAB56
[2025-03-14] MEDS: CEFDINIR 300 MG CAP PO ONE (04:07)
[2025-03-14] MEDS ORDERED: CEFD1CAP9 PO (06:10)
[2025-03-14 06:30] VITALS: BP 125/80; TEMP 97.2; O2SAT 100
== END 2025-03-14 06:32 | disposition home or self-care (01) ==
LOC: M ED 21:53
DX: L02.831 Carbuncle of head [any part, except face] (principal); K21.9 Gastro-esophageal reflux disease without esophagitis; F41.9 Anxiety disorder, unspecified; F19.10 Other psychoactive substance abuse, uncomplicated; Z79.2 Long term (current) use of antibiotics; Z79.899 Other long term (current) drug therapy

== ENCOUNTER → 2025-04-06 | Outpatient (CLI) | payer OTHER ==
[~2025-04-06] MED LIST changes: +CEFD1CAP9 PO
== END ==
LOC: M RAD 08:28
PROVIDERS: ATTEND Student in an Organized Health Care Education/Training Program
DX: M54.50 Low back pain, unspecified (principal)